=== PATIENT | male | born 1970 | race Caucasian/White ===

== ENCOUNTER 2019-08-18 19:23 | Emergency (ER) | payer OTHER ==
[~2019-08-18] VITALS: Ht 177.8 cm; Wt 97.5 kg
--- OUTSIDE RECORDS SUMMARY | ~2019-08-18 | XMS | Encounter Summary ---
Demographics + + + | Address | [address] | | | [place] [address] | + + + | Home Phone | | + + + | Preferred Language | Unknown | + + + | Marital Status | | + + + | Muslim Affiliation | NON | + + + | Race | White | + + + | Ethnic Group | Not or | + + + Author + + + | Author | [facility] | + + + | Organization | [facility] | + + + | Address | Unknown | + + + | Phone | Unavailable | + + + Support + + + + + | Name | Relationship | Address | Phone | + + + + + | Mohit Jackson | ECON | [address] | | | | | [place] | | | | | [address] | | + + + + + Care Team Providers + +------+ + | Care Label Paster Name | Role | Phone | + +------+ + PCP | Unavailable | + +------+ + Encounter Details +--------+ + + + + | Date | Type | Department | Care Team | Description | +--------+ + + + + | 11/03/ | Office | [facility] | Note, Outpatient | Progress Note | | 1999 | Visit-Trans | MEDICINE | Clinic | | | | cribed | | | | +--------+ + + + + Social History + +-------+ +--------+------+ | Tobacco Use | Types | Packs/Day | Years | Date | | | | | Used | | + +-------+ +--------+------+ | Never Assessed | | | | | + +-------+ +--------+------+ + + + | Sex Assigned at | Date Recorded | | | | + + + | Not on file | | + + + + + + + | Job Start Date | Occupation | Industry | + + + + | Not on file | Not on file | Not on file | + + + + + + + + | Travel History | Travel Start | Travel End | + + + + + + | No recent travel history available. | + + documented as of this encounter Progress Notes Interface, Web Analytics Developer In - 07/23/2006 2:26 AM PSTNON-VISIT NOTE: 11/04/1999 ORTHOPEDIC CLINIC SUBJECTIVE: The patient's studies were reevaluated again. He clearly has developed osteoarthritis on the medial side of his knee and his MR demonstrates that he has lost his cartilage in this area, and undoubtedly has a lot of symptoms from medial joint arthritis. PLAN: I think he should be given a trial in an unloading brace and I will convey that to him, and make arrangements to get a proper brace. In addition, I plan to review his studies with Dr. Yunior Wooten to see if there is any radiological procedure such as sclerosing agents that would be of benefit to this patient. Spencer Cornell M.D. HEVER / JUAN FRANCISCO [id number] / [id number] / [id number] / [id number] C: 11/10/1999 georgina cc: Zack Jackson [address] [place] [address] Ye Wooten M.D. [facility] L[address] [facility] [place] [email or web address] signed by Interface, Web Analytics Developer In at 07/23/2006 2:26 AM PSTdocumented in this encounter Plan of Treatment Not on filedocumented as of this encounter Visit Diagnoses Not on filedocumented in this encounter"
--- OUTSIDE RECORDS SUMMARY | ~2019-08-18 | XMS | Encounter Summary ---
Demographics + + + | Address | [address] | | | [place] [address] | + + + | Home Phone | | + + + | Preferred Language | Unknown | + + + | Marital Status | | + + + | Bahai Affiliation | NON | + + + | Race | White | + + + | Ethnic Group | Not or | + + + Author + + + | Author | [facility] | + + + | Organization | [facility] | + + + | Address | Unknown | + + + | Phone | Unavailable | + + + Support + + + + + | Name | Relationship | Address | Phone | + + + + + | Mohit Jackson | ECON | [address] | | | | | [place] | | | | | [address] | | + + + + + Care Team Providers + +------+ + | Care Duplicator Punch Operator Name | Role | Phone | + +------+ + PCP | Unavailable | + +------+ + Encounter Details +--------+ + + + + | Date | Type | Department | Care Team | Description | +--------+ + + + + | 10/31/ | Office | [facility] | Note, [...] as of this encounter Progress Notes Interface, Csw In - 07/23/2006 2:26 AM PSTCLINIC DATE: 11/01/1999 ORTHOPEDIC CLINIC SUBJECTIVE: This is a 29-year-old man seen for evaluation of residual hemangioma involving his left knee. He was found to have a vascular malformation around his knee in the past and has had a surgical resection, a good deal of it, by Dr. Lagos. He obtained some improvement in his discomfort and his pain was significantly diminished for a while after surgery, but about eight months later he began to notice discomfort again and this is the source of ongoing concern and disability for him. PAST MEDICAL HISTORY: Two arthroscopies prior to resection of the hemangioma. 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 ALLERGIES: HE IS ALLERGIC TO DOGS AND CATS. MEDICATIONS: He takes Tylenol and ibuprofen. He thinks that his limb lengths are equal and there is negative family history of any similar problems. 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 He has very few complaints in regard to the remainder of his health, but his left knee is obviously causing him significant and increasing problems. He has recently had an MRI which demonstrates the hemangiomatous material has increased in size since it was originally resected. I arranged for standard x-rays of his knee today which demonstrates that he has degenerative arthritis within the knee with particular involvement on the medial side of the knee. DIAGNOSES 1. Recurrent and persistent hemangiomata about the knee. 2. Osteoarthritis of the knee. RECOMMENDATIONS: I am uncertain as to the best course to follow. I plan to review the MRI with Radiology and discuss with them what the possibilities are for sclerosing agents in this area. I think consideration might be given toward an unloading brace for his knee, but I would like to decide first on how to manage the hemangiomata. Spencer Cornell M.D. HEVER / [id number] / [id number] / [id number] / [id number] C: 11/03/1999 georgina cc: Jian Franklin M.D. [address] [place] [address], [address] [place], [place] [email or web address] signed by Interface, Csw In at 07/23/2006 2:26 AM PSTdocumented in this encounter Plan of Treatment Not on filedocumented as of this encounter Visit Diagnoses Not on filedocumented in this encounter"
--- OUTSIDE RECORDS SUMMARY | ~2019-08-18 | XMS | Encounter Summary ---
Demographics + + + | Address | [address] | | | [place] [address] | + + + | Home Phone | | + + + | Preferred Language | Unknown | + + + | Marital Status | | + + + | Episcopalian Affiliation | NON | + + + | Race | White | + + + | Ethnic Group | Not or | + + + Author + + + | Author | [facility] | + + + | Organization | [facility] | + + + | Address | Unknown | + + + | Phone | Unavailable | + + + Support + + + + + | Name | Relationship | Address | Phone | + + + + + | Mohit Jackson | ECON | [address] | | | | | [place] | | | | | [address] | | + + + + + Care Team Providers + +------+ + | Care Cable Television Installer Name | Role | Phone | + +------+ + PCP | Unavailable | + +------+ + Encounter Details +--------+ + + + + | Date | Type | Department | Care Team | Description | +--------+ + + + + | 01/12/ | Document-Sc | UNKNOWN DEPARTMENT | Unknown . | | | 2016 | anned | [address] | | | | | | [address] | | | | | | [place], [place] | | | | | | [address] | | | +--------+ + + + [...] + + documented as of this encounter Plan of Treatment Not on filedocumented as of this encounter Visit Diagnoses Not on filedocumented in this encounter"
--- OUTSIDE RECORDS SUMMARY | ~2019-08-18 | XMS | Encounter Summary ---
Demographics + + + | Address | [address] | | | [place] [address] | + + + | Home Phone | | + + + | Preferred Language | Unknown | + + + | Marital Status | | + + + | Latter Day Affiliation | NON | + + + | Race | White | + + + | Ethnic Group | Not or | + + + Author + + + | Author | [facility] | + + + | Organization | [facility] | + + + | Address | Unknown | + + + | Phone | Unavailable | + + + Support + + + + + | Name | Relationship | Address | Phone | + + + + + | Mohit Jackson | ECON | [address] | | | | | [place] | | | | | [address] | | + + + + + Care Team Providers + +------+ + | Care Dispensing Audiologist Name | Role | Phone | + +------+ + PCP | Unavailable | + +------+ + Encounter Details +--------+ + + + + | Date | Type | Department | Care Team | Description | +--------+ + + + + | 08/11/ | Discharge | Allergy Clinic at | Summary, Discharge | D/C Summary ODDS | | 1996 | Summary-Tra | [address] | | | | | nscribed | [address] | | | | | | Mailcode: [id number] | | | | | | [address] | | | | | | [facility] | | | | | | [place] [address] | | | | | | [phone] | | | +--------+ + + + [...] + + documented as of this encounter Discharge Summaries Interface, Cloth Doubling Machine Operator In - 10/05/2006 3:01 AM PST [address] [address] [facility] MEDICAL SUMMARY OF HOSPITALIZATION Med Rec No.: [id number] Admission Date: 08/08/97 Name: Zack Jackson Discharge Date: 08/11/97 STAFF PHYSICIAN: Myla Lagos M.D. Adjunct Finished Cigar Maker, Department of Orthopaedics and Rehabilitation PRINCIPAL FINAL DIAGNOSIS: Left knee hemangioma. ADDITIONAL DIAGNOSIS(ES): 1. Idiopathic thrombocytopenic purpura (ITP). 2. Status post splenectomy. 3. Status post prior knee arthroscopy times two. PRINCIPAL PROCEDURE: Excision of left knee hemangioma. ADDITIONAL PROCEDURE(S): Physical therapy. REASON FOR ADMISSION: The patient is a pleasant 27-year-old gentleman who was seen in the Orthopedics Clinic by Dr. Lagos regarding left knee pain. The patient has a long history of knee pain that began when he was a teenager. He had an arthroscopy which showed osteoarthritis dissecans. He had follow-up arthroscopic surgery in suggesting some pigmented villonodular synovitis. He was offered surgery to resect it at the time, however, he declined. Since that time, he has had increasing knee pain and swelling and this has limited his ability to ambulate and be involved in the activities of daily living at his home. He wears a knee brace to support his knee. HOSPITAL COURSE: The patient was taken to the Operating Room on 08/08/97 for an excision of a large intra and extra-articular hemangioma of the left knee. The patient tolerated the procedure well and was taken to the Post Anesthesia Care Unit in stable condition. The patient's postoperative course was remarkable for some numbness and tingling of the left lower extremity. It was felt that this was associated with the use of the tourniquet intraoperatively. It was anticipated that full sensation should resume. The patient had sensation to light touch and pain intact to his foot and first dorsal web space. EHL was intact. The patient continued to do well. He was evaluated by Physical Therapy who worked with him to help rehabilitate his lower extremity. He was ok'd by Physical Therapy to return home on his third postoperative day. On the day of discharge the patient was achieving good pain control on oral medications, tolerating a regular diet and successfully evaluated by Physical Therapy. CONDITION ON DISCHARGE: Stable. DISCHARGE MEDICATION(S): Vicodin 1-2 tabs p.o. q. 4-6 p.r.n. pain. DISCHARGE INSTRUCTION(S): DIET: Regular as tolerated. ACTIVITY: The patient may bear weight as tolerated on the left lower extremity and may mobilize as tolerated. However, it is recommended that the patient should elevate his left lower extremity when he is not actively using it. FOLLOW UP: The patient is to follow-up in Orthopedics Clinic with Dr. Lagos on 08/14/97. Raulito Beard M.D. Resident, Surgery Myla Lagos M.D. Adjunct Finished Cigar Maker, Department of Orthopaedics and Rehabilitation [place]/todd A cc: Carltno Ospina M.D. Adjunct Director Home, Department of Orthopaedics and Rehabilitation documented in this encounter Plan of Treatment Not on filedocumented as of this encounter Visit Diagnoses Not on filedocumented in this encounter"
--- OUTSIDE RECORDS SUMMARY | ~2019-08-18 | XMS | Encounter Summary ---
Demographics + + + | Address | [address] | | | [place] [address] | + + + | Home Phone | | + + + | Preferred Language | Unknown | + + + | Marital Status | | + + + | Hinduism Affiliation | NON | + + + | Race | White | + + + | Ethnic Group | Not or | + + + Author + + + | Author | [facility] | + + + | Organization | [facility] | + + + | Address | Unknown | + + + | Phone | Unavailable | + + + Support + + + + + | Name | Relationship | Address | Phone | + + + + + | Mohit Jackson | ECON | [address] | | | | | [place] | | | | | [address] | | + + + + + Care Team Providers + +------+ + | Care Home Builder Name | Role | Phone | + +------+ + PCP | Unavailable | + +------+ + Encounter Details +--------+ + + + + | Date | Type | Department | Care Team | Description | +--------+ + + + + | 06/12/ | Office | General Internal | Note, Outpatient | Progress Note | | 1996 | Visit-Trans | Medicine [address] | Clinic | | | | cribed | [address] | | | | | | Mailcode: [id number] | | | | | | Outpatient Clinic | | | | | | [facility], [address] | | | | | | [place], [place] | | | | | | [address] | | | | | | [phone] | | | +--------+ + + + [...] as of this encounter Progress Notes Interface, Central Supply Assistant In - 10/11/2006 3:10 AM [facility] CLINIC DATE: 06/12/97 HISTORY OF PRESENT ILLNESS: I had a chance to Zack Jackson in the clinic today. He is a 27-year-old man who has a long history of pain and swelling of the left knee. Apparently he has had trouble with his left knee as long as he can remember. Apparently at age 10 he had arthroscopic surgery on his knee, was told that he had osteochondritis dissecans. Apparently his knee continued to bother him and in July of 1984 he had another surgery with arthroscopic examination and removal of some tissue from his knee which was said to be a pigmented villonodular synovitis. He had a partial removal of this. Open surgery was suggested to get rid of the rest of the lesion, but he has declined the surgery. He has had no surgery since then; however, has had more trouble with hit knee. He has had increasing pain in his pain with increasing swelling of the area as well. The knee feels also stiffer. He has been a lot of problem with the knee pain requiring Tylenol for pain. The pain is aggravated by walking or any physical activity, but it is presently pretty much all the time. He gets some relief with a warm bath. He wears a little brace to support his knee, but apparently this is only partially effective. He has no problems with his other knee. PAST MEDICAL HISTORY: He has a history of ITP. He has had a splenectomy in the past for the thrombocytopenia, and was initially followed here by Dr. Henri Santana. He has had apparently no other medical problems other than minor trauma and some fractures due to various falls and injuries. SOCIAL HISTORY: He is not particularly active in sports. He does not smoke. He apparently quite about 2-1/2 years ago. He does not drink. He does not take street drugs. He works as a restaurant crew. He is with one child. CURRENT MEDICATIONS: He takes no medications other than occasional Tylenol and has no known allergies. PHYSICAL EXAMINATION: He does have essentially a normal right lower extremity. On the left side he has obvious wastings in his quadriceps and his low leg. He has boggy swelling of his knee extending into the distal part of the quadriceps on the medial side. There is a palpable lump in this area and some lumpiness posteriorly as well. He does have a moderate effusion. Some of it is difficult to distinguish from just the generalized bogginess of his knee. He has full extension range of motion missing about 15 to 20 degrees of full flexion. Neurovascular status of the extremity is normal. He has normal ligamental stability. There is some tenderness in the area of the knee as well and along the medial joint line as well. X-RAYS/MRI: I then reviewed his MRI and this does show a large lesion invading various areas including his knee where there is a significant effusion, but also into his muscles, particularly the medial part of the quadriceps, but posteriorly as well. IMPRESSION AND PLAN: I believe the most likely diagnosis at this point is still a villonodular synovitis, but other lesions, of course, have to be ruled out. Particularly the invasion into the musculature is possible, that something like a hemangioma may be the culprit. The plan at this point will be to be to get him organized for a biopsy and resection of this lesion and perhaps make sure that we get blood work as well to make sure that his platelet count is appropriate. Perhaps have him seen as a pre-operative consultation by Dr. Santana to make sure no other precautions are necessary. We will try to get this organized in the future and hopefully be able to rehabilitate him fully. Myla Lagos M.D. Adjunct Coiled Tubing Supervisor, Department of Orthopaedics and Rehabilitation Franky A cc: Jian Garcia M.D. documented in this encounter Plan of Treatment Not on filedocumented as of this encounter Visit Diagnoses Not on filedocumented in this encounter"
--- OUTSIDE RECORDS SUMMARY | ~2019-08-18 | XMS | Encounter Summary ---
Demographics + + + | Address | [address] | | | [place] [address] | + + + | Home Phone | | + + + | Preferred Language | Unknown | + + + | Marital Status | | + + + | Presybeterian Affiliation | NON | + + + | Race | White | + + + | Ethnic Group | Not or | + + + Author + + + | Author | [facility] | + + + | Organization | [facility] | + + + | Address | Unknown | + + + | Phone | Unavailable | + + + Support + + + + + | Name | Relationship | Address | Phone | + + + + + | Mohit Jackson | ECON | [address] | | | | | [place] | | | | | [address] | | + + + + + Care Team Providers + +------+ + | Care Tripe Washer Name | Role | Phone | + +------+ + PCP | Unavailable | + +------+ + Encounter Details +--------+ + + + + | Date | Type | Department | Care Team | Description | +--------+ + + + + | 09/25/ | Office | General Internal | Note, Outpatient | Progress Note | | 1997 | Visit-Trans | Medicine [address] | Clinic | | | | cribed | [address] | | | | | | Mailcode: [id number] | | | | | | Outpatient Clinic | | | | | | [facility], [address] | | | | | | [place], [place] | | | | | | [address] | | | | | | [phone] | | | +--------+ + + + [...] as of this encounter Progress Notes Interface, Outside Sales Professional In - 09/29/2006 3:06 AM PST CLINIC DATE: 09/25/97 This man is recovering from a resection of inter-axillary hemiangioma from his left knee. He is doing reasonably well. His range of motion and strength is improving. He still is moderately swollen, which is not terribly surprising, considering the extent of his surgery. He is going to continue with physical therapy, and see me again in three or four months. Myla Lagos M.D. Adjunct Plasma Cutting Machine Operator, Department of Orthopaedics and Rehabilitation Makenzie P documented in this encounter Plan of Treatment Not on filedocumented as of this encounter Visit Diagnoses Not on filedocumented in this encounter"
--- OUTSIDE RECORDS SUMMARY | ~2019-08-18 | XMS | Encounter Summary ---
Demographics + + + | Address | [address] | | | [place] [address] | + + + | Home Phone | | + + + | Preferred Language | Unknown | + + + | Marital Status | | + + + | Pentecostalism Affiliation | NON | + + + | Race | White | + + + | Ethnic Group | Not or | + + + Author + + + | Author | [facility] | + + + | Organization | [facility] | + + + | Address | Unknown | + + + | Phone | Unavailable | + + + Support + + + + + | Name | Relationship | Address | Phone | + + + + + | Mohit Jackson | ECON | [address] | | | | | [place] | | | | | [address] | | + + + + + Care Team Providers + +------+ + | Care Levee Superintendent Name | Role | Phone | + +------+ + PCP | Unavailable | + +------+ + Encounter Details +--------+ + + + + | Date | Type | Department | Care Team | Description | +--------+ + + + + | 08/08/ | Results | LAB CORE [address] | [facility] | | | 1996 | Only | [address] | [phone] | | | | | [place] | | | | | | [address] | | | | | | [phone] | | | +--------+ + + + [...] Not on filedocumented as of this encounter Procedures + +--------+ + + + | Procedure Name | Priori | Date/Time | Associated Diagnosis | Comments | | | ty | | | | + +--------+ + + + | SURGICAL PATHOLOGY | Routin | 08/08/1997 | | Results for this | | | e | | | procedure are in the | | | | | | results section. | + +--------+ + + + documented in this encounter Results SURGICAL PATHOLOGY (08/08/1997) + + + + + + | Component | Value | Ref Range | Performed | Pathologist | | | | | At | Signature | + + + + + + | SURGICAL | SOURCE OF SPECIMEN: SEE | | [facility] | | | PATHOLOGY | RESULTS | | DEPARTMENT | | | | Preliminary | | OF | | | | History:FROZEN SECTION | | PATHOLOGY | | | | DIAGNOSISLEFT KNEE MASS | | | | | | (SPECIMEN #1) - | | | | | | INTRAMUSCULAR HEMANGIOMA | | | | | | Confirmed by: | | | | | | Johnathan Wagner M.D. | | | | | | CLINICAL HISTORY | | | | | | Patient Age: 27 year | | | | | | old male. Patient | | | | | | History: soft tissue | | | | | | tumor of the left knee; | | | | | | likelyhemangioma, extra | | | | | | and intra-articular. | | | | | | GROSS DESCRIPTION | | | | | | Specimens received: | | | | | | One fresh, two in | | | | | | formalin #1 LEFT | | | | | | KNEE MASS-FS: The | | | | | | specimen is received | | | | | | fresh and consists of | | | | | | asingle fragment of gomes, | | | | | | soft tissue measuring | | | | | | 1.3 x 1 x 0.6 cm. | | | | | | Thespecimen is inked | | | | | | black during frozen | | | | | | section diagnosis. The | | | | | | remainingtissue is | | | | | | serially sectioned to | | | | | | reveal a gomes, granular | | | | | | surface. #2 | | | | | | HEMANGIOMA LEFT KNEE: | | | | | | The specimen is received | | | | | | in formalin andconsists | | | | | | of eight fragments of | | | | | | gomes to maroon, soft, | | | | | | fibroadipose tissue.The | | | | | | largest fragment | | | | | | measures 9 x 5.5 x 1.6 | | | | | | cm. The additional | | | | | | fragmentsof soft tissue | | | | | | measure 6 x 5.5 x 1.5 | | | | | | cm. in aggregate | | | | | | dimension. Thefragments | | | | | | are unoriented and are | | | | | | serially sectioned to | | | | | | reveal a gomes tored, soft | | | | | | and glistening surface. | | | | | | #3 INTERARTICULAR | | | | | | COMPONENT: The specimen | | | | | | is received in formalin | | | | | | andconsists of four | | | | | | unoriented, gomes to | | | | | | maroon, soft | | | | | | fibroadipose tissue.The | | | | | | largest fragment | | | | | | measures 4.1 x 1.8 x 1 | | | | | | cm. and the three | | | | | | additionalfragments | | | | | | measure 1.5 x 1.5 x 0.7 | | | | | | cm. in aggregate | | | | | | dimension. | | | | | | Slide Index:LEFT KNEE | | | | | | MASS:Cassette 1A, | | | | | | specimen used for frozen | | | | | | section diagnosis, now | | | | | | resubmittedCassette 1B, | | | | | | additional fragments in | | | | | | totoHEMANGIOMA LEFT | | | | | | KNEE:Cassettes 2A-C, | | | | | | sections of | | | | | | fragmentsINTERARTICULAR | | | | | | COMPONENT:Cassette 3, | | | | | | sections of fragments | | | | | | All tissue sections | | | | | | taken are submitted for | | | | | | microscopic | | | | | | evaluation.SP/dj | | | | | | FINAL DIAGNOSIS#1 LEFT | | | | | | KNEE MASS: | | | | | | HEMANGIOMA#2 | | | | | | HEMANGIOMA LEFT KNEE: | | | | | | HEMANGIOMA#3 | | | | | | INTERARTICULAR | | | | | | COMPONENT: HEMANGIOMA | | | | | | Case reviewed by: | | | | | | Shaan Abdi M.D.Case | | | | | | staffed by: Celestina | | | | | | Sandy | | | | | | Jiant:[birth year]:cc | | | | | | My electronic signature | | | | | | indicates that I have | | | | | | personally reviewed | | | | | | alldiagnostic slides, | | | | | | the gross and/or | | | | | | microscopic portion of | | | | | | thisreport and | | | | | | formulated the final | | | | | | diagnosis. | | | | + + + + + + + + | Specimen | + + | Other | + + + + + + + | Performing | Address | City/State/Zipcode | Phone Number | | Organization | | | | + + + + + | [facility] | [address] | [place] [address] | | | PATHOLOGY | [address] | | | + + + + + documented in this encounter Visit Diagnoses Not on filedocumented in this encounter"
--- OUTSIDE RECORDS SUMMARY | ~2019-08-18 | XMS | Encounter Summary ---
Demographics + + + | Address | [address] | | | [place] [address] | + + + | Home Phone | | + + + | Preferred Language | Unknown | + + + | Marital Status | | + + + | Church Affiliation | 1013 | + + + | Race | Unknown | + + + | Ethnic Group | Unknown | + + + Author + + + | Author | [facility] | | | and [place] | + + + | Organization | [facility] | | | and [place] | + + + | Address | Unknown | + + + | Phone | Unavailable | + + + Support + + +---------+ + | Name | Relationship | Address | Phone | + + +---------+ + | Lori Jackson | ECON | Unknown | | + + +---------+ + Care Team Providers + +------+ + | Care Boat Buffer Plastic Name | Role | Phone | + +------+ + PCP | Unavailable | + +------+ + Encounter Details +--------+ + + + + | Date | Type | Department | Care Team | Description | +--------+ + + + + | 08/23/ | [facility] | [facility] | Unknown, | | | 2000 | Encounter | MED CTR XRAY [address] | MD Mike | | | | | [address] | | | | | | [place] [address] | (Fax) | | | | | [phone] | | | +--------+ + + + [...]
--- OUTSIDE RECORDS SUMMARY | ~2019-08-18 | XMS | Encounter Summary ---
Demographics + + + | Address | [address] | | | [place] [address] | + + + | Home Phone | | + + + | Preferred Language | Unknown | + + + | Marital Status | | + + + | Zoroastrian Affiliation | NON | + + + | Race | White | + + + | Ethnic Group | Not or | + + + Author + + + | Author | [facility] | + + + | Organization | [facility] | + + + | Address | Unknown | + + + | Phone | Unavailable | + + + Support + + + + + | Name | Relationship | Address | Phone | + + + + + | Mohit Jackson | ECON | [address] | | | | | [place] | | | | | [address] | | + + + + + Care Team Providers + +------+ + | Care Trimming Cutter Machine Name | Role | Phone | + +------+ + PCP | Unavailable | + +------+ + Encounter Details +--------+ + + + + | Date | Type | Department | Care Team | Description | +--------+ + + + + | 08/08/ | Results | LAB CORE [address] | [facility] | | | 1996 | Only | [address] | [phone] | | | | | [place] | | | | | | [address] | | | | | | [phone] | | | +--------+ + + + [...] | + + + + + | [facility] | [address] | [place] [address] | | | PATHOLOGY | [address] | | | + + + + + documented in this encounter Visit Diagnoses Not on filedocumented in this encounter"
--- OUTSIDE RECORDS SUMMARY | ~2019-08-18 | XMS | Encounter Summary ---
Demographics + + + | Address | [address] | | | [place] [address] | + + + | Home Phone | | + + + | Preferred Language | Unknown | + + + | Marital Status | | + + + | Mosque Affiliation | NON | + + + | Race | White | + + + | Ethnic Group | Not or | + + + Author + + + | Author | [facility] | + + + | Organization | [facility] | + + + | Address | Unknown | + + + | Phone | Unavailable | + + + Support + + + + + | Name | Relationship | Address | Phone | + + + + + | Mohit Jackson | ECON | [address] | | | | | [place] | | | | | [address] | | + + + + + Care Team Providers + +------+ + | Care Hvac Maintenance Technician Name | Role | Phone | + +------+ + PCP | Unavailable | + +------+ + Encounter Details +--------+ + + + + | Date | Type | Department | Care Team | Description | +--------+ + + + + | 10/14/ | Office | [facility] | Note, [...] as of this encounter Progress Notes Interface, Configuration Management Manager In - 07/25/2006 5:03 AM PSTCLINIC DATE: 10/14/1999 ORTHOPEDIC CLINIC SUBJECTIVE: Mr. Jackson was seen in the clinic on October 14, 1999. He has been having increasing problem with his knee. He now has fairly significant pain in his knee apparently enough that it interferes with his activities of daily living and it certainly bothers him at night as well. He also noticed some swelling in his knee. PHYSICAL EXAMINATION: Examining him, he indeed does have some bogginess in around patellofemoral joint and tenderness in the area and tenderness and discomfort posteriorly as well. He does have a knee effusion. I reviewed his MRI, and his MRI does show local recurrence of his disease together with degenerative changes in his knee with the previous erosions by the hemangioma. I then had a long discussion with him regarding the treatment possibilities. I discussed the possibility of trying to embolize his lesions or have them again surgically resected. He is not very keen on having a repeat excision surgery. He expressed interest in a total joint replacement. I discouraged him from this particular idea as he is quite a young man and having a total joint at this age is certainly not an answer to his problem. I felt that perhaps he should have a second opinion regarding what would be the best treatment for him, and I suggested my colleague Dr. Cornell, who is a very experienced and knowledgeable orthopedic surgeon, see Rik for his problem. I will then, of course, see him after the consultation and see if we can reach some consensus on what should be done next. Myla Lagos M.D. VAISHALI / JUAN FRANCISCO [id number] / [id number] / [id number] / [id number] Tdocumented in this encounter Plan of Treatment Not on filedocumented as of this encounter Visit Diagnoses Not on filedocumented in this encounter"
--- OUTSIDE RECORDS SUMMARY | ~2019-08-18 | XMS | Encounter Summary ---
Demographics + + + | Address | [address] | | | [place] [address] | + + + | Home Phone | | + + + | Preferred Language | Unknown | + + + | Marital Status | | + + + | Gnosticism Affiliation | NON | + + + [...] [place] | | | | | [address] | | + + + + + Care Team Providers + +------+ + | Care Assurance Officer Name | Role | Phone | + +------+ + PCP | Unavailable | + +------+ + Encounter Details +--------+ + + + + | Date | Type | Department | Care Team | Description | +--------+ + + + + | 08/14/ | Office | General Internal | Note, Outpatient | Progress Note | | 1996 | Visit-Trans | Medicine [address] | Clinic | | | | cribed | [address] | | | | | | Mailcode: [id number] | | | | | | Outpatient Clinic | | | | | | [facility], [address] | | | | | | [place], [place] | | | | | | [address] | | | | | | [phone] | | | +--------+ + + + [...] as of this encounter Progress Notes Interface, Movie Extra In - 10/05/2006 3:01 AM PST CLINIC DATE: 08/14/97 Mr. 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 It was a rather extensive operation, removing large portion of the hemangioma from the area of the vastus medialis and from the popliteal fossa. He has done well. The wound is healing nicely. He still has a persistent effusion. The plan at this point is to continue to watch his knee for any evidence of wound problem, and get him started on physical therapy, particularly isometric strengthening of his quadriceps and the range of motion exercises. I will review him again in three weeks. His final pathology is extra and intra-articular hemangioma. Myla Lagos M.D. Adjunct [employer] Miller, Department of Orthopaedics and Rehabilitation Makenzie A documented in this encounter Plan of Treatment Not on filedocumented as of this encounter Visit Diagnoses Not on filedocumented in this encounter"
--- OUTSIDE RECORDS SUMMARY | ~2019-08-18 | XMS | Encounter Summary ---
Demographics + + + | Address | [address] | | | [place] [address] | + + + | Home Phone | | + + + | Preferred Language | Unknown | + + + | Marital Status | | + + + | Mormon Affiliation | NON | + + + | Race | White | + + + | Ethnic Group | Not or | + + + Author + + + | Author | [facility] | + + + | Organization | [facility] | + + + | Address | Unknown | + + + | Phone | Unavailable | + + + Support + + + + + | Name | Relationship | Address | Phone | + + + + + | Mohit Jackson | ECON | [address] | | | | | [place] | | | | | [address] | | + + + + + Care Team Providers + +------+ + | Care Set Illustrator Name | Role | Phone | + [...] Clinic | | | | | | [facility], [address] | | | | | | [place], [place] | | | | | | [address] | | | | | | [phone] | | | +--------+ + + + [...] as of this encounter Progress Notes Interface, Utility Specialist In - 09/29/2006 3:06 AM PST CLINIC [...] or four months. Myla Lagos M.D. Adjunct Oncology Technician, Department of Orthopaedics and Rehabilitation Makenzie P documented in this encounter Plan of Treatment Not on filedocumented as of this encounter Visit Diagnoses Not on filedocumented in this encounter"
--- OUTSIDE RECORDS SUMMARY | ~2019-08-18 | XMS | Encounter Summary ---
Demographics + + + | Address | [address] | | | [place] [address] | + + + | Home Phone | | + + + | Preferred Language | Unknown | + + + | Marital Status | | + + + | Bahai Affiliation | NON | + + + | Race | White | + + + | Ethnic Group | Not or | + + + Author + + + | Author | [facility] | + + + | Organization | [facility] | + + + | Address | Unknown | + + + | Phone | Unavailable | + + + Support + + + + + | Name | Relationship | Address | Phone | + + + + + | Mohit Jackson | ECON | [address] | | | | | [place] | | | | | [address] | | + + + + + Care Team Providers + +------+ + | Care Consulting Manager Name | Role | Phone | + +------+ + PCP | Unavailable | + +------+ + Encounter Details +--------+ + + + + | Date | Type | Department | Care Team | Description | +--------+ + + + + | 05/24/ | Results | Orthopaedics at | Spencer Cornell MD | | | 2000 | Only | [facility] [address] | [address] | | | | | [address] | [place], | | | | | Mailcode: [id number] | [place] [address] | | | | | [facility] | | | | | | [place] | | | | | | [address] | | | | | | [phone] | | | +--------+ + + + [...] | + +--------+ + + + | MRI KNEE LT WO CONT | Routin | 05/24/2001 | | Results for this | | | e | 2:30 PM | | procedure are in the | | | | PDT | | results section. | + +--------+ + + + documented in this encounter Results MRI KNEE LT WO CONT (05/24/2001 2:30 PM PDT) + + + + + + | Component | Value | Ref Range | Performed | Pathologist | | | | | At | Signature | + + + + + + | MR KNEE LT | Radiologist 1: TANISHA, | | | | | WO CONT | Myla ANGULO M.D.LEFT | | | | | | KNEE MRI: 05/24/2001 | | | | | | Dictated 06/12/01 | | | | | | COMPARISON: Outside knee | | | | | | MRI from 08/06/1999 at | | | | | | [facility]. | | | | | | PROCEDURE: Knee coil | | | | | | was used for the | | | | | | following sequences:1. | | | | | | Coronal proton density | | | | | | and T2 spin echo.2. | | | | | | Sagittal proton | | | | | | density and T2 spin echo | | | | | | with fat suppression.3. | | | | | | Axial T2* weighted | | | | | | gradient echo images and | | | | | | oblique sagittal T1 | | | | | | images. Field of | | | | | | view is 14 cm on all | | | | | | images. The comparison | | | | | | study has slightly | | | | | | more proximal coverage | | | | | | with 18 cm field ofview. | | | | | | FINDINGS: There is | | | | | | advanced degenerative | | | | | | joint disease of all | | | | | | threejoint compartments. | | | | | | It is most severe in | | | | | | the medial compartment | | | | | | withjoint narrowing, | | | | | | femoral condylar | | | | | | flattening and reactive | | | | | | edema of thefemoral and | | | | | | tibial condyles. There | | | | | | is almost complete loss | | | | | | ofarticular cartilage | | | | | | in the medial | | | | | | compartment. There are | | | | | | prominentmarginal | | | | | | osteophytes both medial | | | | | | and laterally as well as | | | | | | at theintracondylar | | | | | | notch. Patellofemoral | | | | | | spurring is also | | | | | | present. There is large | | | | | | complex tear of the | | | | | | medial meniscus with | | | | | | almostmaceration of the | | | | | | body. Tear extends | | | | | | into both the anterior | | | | | | andposterior horns. | | | | | | The lateral meniscus | | | | | | appears intact without | | | | | | discreettear. The | | | | | | anterior and posterior | | | | | | cruciate ligaments are | | | | | | intact.Medial collateral | | | | | | ligament and lateral | | | | | | collateral ligament | | | | | | complex areintact. Again | | | | | | noted, are multiple | | | | | | foci of lobular | | | | | | hyperintense soft | | | | | | tissuemasses consistent | | | | | | with hemangioma. Some | | | | | | collections are rather | | | | | | wellmarginated while | | | | | | others are more | | | | | | infiltrative in nature | | | | | | making itdifficult to | | | | | | provide clear-cut | | | | | | measurements of the | | | | | | tumor margin.Largest | | | | | | areas of hemangioma are | | | | | | seen in the following | | | | | | locations: 1. There is | | | | | | a 2.7 x 1.5 cm | | | | | | hemangiomatous mass | | | | | | anteriorly within | | | | | | Hoffa's fat pad. 2. | | | | | | There is large lobular | | | | | | mass adjacent to the | | | | | | medial femoral | | | | | | metaphysis which | | | | | | measures approximately 5 | | | | | | x 4 x 2 cm craniocaudad | | | | | | and transverse | | | | | | dimensions. It appears | | | | | | more marginated | | | | | | anteriorly but | | | | | | posteriorly becomes much | | | | | | more infiltrated in | | | | | | nature involving | | | | | | the subcutaneous fat | | | | | | as well as the vastus | | | | | | medialis. On sagittal | | | | | | images this area can | | | | | | be seen to measure | | | | | | slightly greater than 5 | | | | | | cm in longitudinal | | | | | | dimension and 2 cm AP. | | | | | | 3. There is a focal | | | | | | lesion measuring almost | | | | | | 2 cm just posterior to | | | | | | the PCL. 4. There | | | | | | is multi-lobular | | | | | | hyperintense mass | | | | | | surrounding the | | | | | | popliteal vessels | | | | | | in the superior aspect | | | | | | of popliteus fossa. | | | | | | The cranial | | | | | | extent of this is not | | | | | | included. 5. There is | | | | | | joint effusion | | | | | | collecting predominately | | | | | | in the lateral | | | | | | recess of the | | | | | | suprapatellar pouch. | | | | | | Because of this bright | | | | | | signal it is | | | | | | somewhat difficult to | | | | | | visualize some poorly | | | | | | marginated adjacent | | | | | | portions of soft tissue | | | | | | hemangioma. 6. No | | | | | | intraosseous hemangioma | | | | | | or intra-articular | | | | | | extent is | | | | | | identified. | | | | | | IMPRESSION: 1. Multi | | | | | | focal hyperintense | | | | | | multi-lobular soft | | | | | | tissue massesconsistent | | | | | | with history of | | | | | | hemangioma. Size and | | | | | | distribution of | | | | | | thelesions does not | | | | | | appear appreciately | | | | | | changed since 07/1999. | | | | | | AlthoughI do not | | | | | | currently image the most | | | | | | cranial extent of the | | | | | | region arounda popliteal | | | | | | vessels, that area | | | | | | which is included in our | | | | | | field of viewappears | | | | | | unchanged. I see no | | | | | | vascular occlusion of | | | | | | the poplitealartery or | | | | | | vein. 2. Advanced | | | | | | degenerative joint | | | | | | disease with almost | | | | | | complete cartilageloss | | | | | | and some flattening at | | | | | | the medial condyle with | | | | | | reactive edema ofboth | | | | | | the femoral and tibial | | | | | | condyles. 3. Extensive | | | | | | complex tear involving | | | | | | much of the medial | | | | | | meniscus. 4. Joint | | | | | | effusion. 5. | | | | | | Patellofemoral | | | | | | degenerative joint | | | | | | disease with cartilage | | | | | | thinningand marginal | | | | | | osteophytes. There is | | | | | | slight lateral | | | | | | subluxation of | | | | | | thepatella on axial | | | | | | images. END OF | | | | | | IMPRESSION: | | | | + + + + + + + + | Specimen | + + | | + + + +---------+ + + | Performing | Address | City/State/Zipcode | Phone Number | | Organization | | | | + +---------+ + + | [facility] DEPARTMENT OF | | | | | RADIOLOGY | | | | + +---------+ + + documented in this encounter Visit Diagnoses Not on filedocumented in this encounter"
--- OUTSIDE RECORDS SUMMARY | ~2019-08-18 | XMS | Encounter Summary ---
Demographics + + + | Address | [address] | | | [place] [address] | + + + | Home Phone | | + + + | Preferred Language | Unknown | + + + | Marital Status | | + + + | Muslim Affiliation | NON | + + + | Race | White | + + + | Ethnic Group | Not or | + + + Author + + + | Author | [facility] | + + + | Organization | [facility] | + + + | Address | Unknown | + + + | Phone | Unavailable | + + + Support + + + + + | Name | Relationship | Address | Phone | + + + + + | Mohit Jackson | ECON | [address] | | | | | [place] | | | | | [address] | | + + + + + Care Team Providers + +------+ + | Care Lawnmower Mechanic Name | Role | Phone | + +------+ + PCP | Unavailable | + +------+ + Encounter Details +--------+ + + + + | Date | Type | Department | Care Team | Description | +--------+ + + + + | 06/15/ | Office | [facility] | Note, Outpatient | Progress Note | | 2000 | Visit-Trans | MEDICINE | Clinic | [...] as of this encounter Progress Notes Interface, Pie Chef In - 06/01/2006 3:12 AM PDTNON-VISIT NOTE: 06/15/2001 ORTHOPEDIC CLINIC I reviewed the new MRI on Mr. Jackson along with Dr. Mc. There is a fairly sizeable area of hemangioma in the area of the infrapatellar fat pad. There is another area on the medial side at the upper end of the condyle, and then there is a fairly large area posteriorly. I think from a technical standpoint, it should be possible to put a total knee in here without getting into too much of his hemangioma. It is a little worsened, but I think it is probably appropriate to proceed. He has previously been reviewed with Dr. Wooten, and he and the patient did not arrive at a plan to deal with any of the hemangioma. There is no question that he has severe osteoarthritis. I plan to be in touch with him and determine a final plan. Spencer Cornell M.D. HEVER / JUAN FRANCISCO [id number] / [id number] / [id number] / C: 06/18/2001 hkh A M PDTdocumented in this encounter Plan of Treatment Not on filedocumented as of this encounter Visit Diagnoses Not on filedocumented in this encounter"
--- OUTSIDE RECORDS SUMMARY | ~2019-08-18 | XMS | Clinical Summary ---
Demographics + + + | Address | [address] | | | [place] [address] | + + + | Home Phone | | + + + | Preferred Language | Unknown | + + + | Marital Status | | + + + | Shinto Affiliation | NON | + + + | Race | White | + + + | Ethnic Group | Not or | + + + Author + + + | Organization | Unknown | + + + | Address | Unknown | + + + | Phone | Unavailable | + + + Support + + + + + | Name | Relationship | Address | Phone | + + + + + | Mohit Jackson | ECON | [address] | | | | | [place] | | | | | [address] | | + + + + + Care Team Providers + +------+ + | Care Branch Associate Teller Name | Role | Phone | + +------+ + PCP | Unavailable | + +------+ + Source Comments STEFFEN is fully live on both [facility] Ambulatory and [facility] InPatient.[facility] Allergies + + + + + + | Active Allergy | Reactions | Severity | Noted | Comments | | | | | Date | | + + + + + + | Clarification Needed | | | 08/08/19 | ANTICOAGULANTS | | | | | 97 | | + + + + + + Medications Not on file Active Problems Not on file Social History + +-------+ +--------+------+ | Tobacco [...] recent travel history available. | + + Last Filed Vital Signs Not on file Plan of Treatment + + + + + | Health Maintenance | Due Date | Last Done | Comments | + + + + + | Influenza (Flu) | | | | | vaccination (#1) | 9 | | | + + + + + | Pneumococcal | Aged Out | | No longer eligible | | vaccination | | | based on patient's | | | | | age to complete this | | | | | topic | + + + + + Results Not on filefrom Last 3 Months"
--- OUTSIDE RECORDS SUMMARY | ~2019-08-18 | XMS | Clinical Summary ---
Demographics + + + | Address | [address] | | | [place] [address] | + + + | Home Phone | | + + + | Preferred Language | Unknown | + + + | Marital Status | | + + + | Denominational Affiliation | 1013 | + + + | Race | Unknown | + + + | Ethnic Group | Unknown | + + + Author + + + | Author | [facility] | | | and [place] | + + + | Organization | [facility] | | | and [place] | [...] Team Providers + +------+ + | Care Smoking Pipe Maker Name | Role | Phone | + +------+ + PCP | Unavailable | + +------+ + Allergies Not on File Medications Not on file Active Problems Not [...] | + + + + + | Vaccine: | | | | | Dtap/Tdap/Td (1 - | 0 | | | | Tdap) | | | | + + + + + | Vaccine: Influenza | | | | | (#1) | 9 | | | + + + + + | Vaccine: Zoster (1 | | | | | of 2) | 9 | | | + + + + + Results Not on filefrom Last 3 Months"
--- OUTSIDE RECORDS SUMMARY | ~2019-08-18 | XMS | Encounter Summary ---
Demographics + + + | Address | [address] | | | [place] [address] | + + + | Home Phone | | + + + | Preferred Language | Unknown | + + + | Marital Status | | + + + | Sabianist Affiliation | NON | + + + | Race | White | + + + | Ethnic Group | Not or | + + + Author + + + | Author | [facility] | + + + | Organization | [facility] | + + + | Address | Unknown | + + + | Phone | Unavailable | + + + Support + + + + + | Name | Relationship | Address | Phone | + + + + + | Mohit Jackson | ECON | [address] | | | | | [place] | | | | | [address] | | + + + + + Care Team Providers + +------+ + | Care Lap Machine Operator Name | Role | Phone | [...] as of this encounter Progress Notes Interface, Car Ferry Captain In - 07/23/2006 2:26 AM PSTNON-VISIT NOTE: [...] Spencer Cornell M.D. HEVER / JUAN FRANCISCO [id number] / [id number] / [id number] / [id number] C: 11/10/1999 georgina cc: Zack Jackson [address] [place] [address] Ye Wooten M.D. [facility] [id number] [facility] [place] [address]Advhoawmkddazw signed by Interface, Car Ferry Captain In at 07/23/2006 2:26 AM PSTdocumented in this encounter Plan of Treatment Not on filedocumented as of this encounter Visit Diagnoses Not on filedocumented in this encounter"
--- OUTSIDE RECORDS SUMMARY | ~2019-08-18 | XMS | Encounter Summary ---
Demographics + + + | Address | [address] | | | [place] [address] | + + + | Home Phone | | + + + | Preferred Language | Unknown | + + + | Marital Status | | + + + | Scientologist Affiliation | NON | + + + [...] [place] | | | | | [address] | | + + + + + Care Team Providers + +------+ + | Care Process Designer Name | Role | Phone | + +------+ + PCP | Unavailable | + +------+ + Encounter Details +--------+ + + + + | Date | Type | Department | Care Team | Description | +--------+ + + + + | 11/17/ | Office | [facility] | Note, [...] as of this encounter Progress Notes Interface, Tongue Stitcher In - 07/23/2006 2:26 AM PSTNON-VISIT NOTE: 11/18/[facility] I called Zack at work [phone] and made arrangements with [employer] to call him to arrange for an unloading brace. I verified that Dr. Ye Wooten is out of town for about a week, but I have sent his MRI over to Dr. Wooten who will review it and see if there is anything further we can do. I plan to get back in touch with the patient after Dr. Wooten contacts me. MD DANELLE HernandezB / HS [id number] / [id number] / [id number] / [id number] C: 11/20/[address] [facility] cc: Ye Wooten MD [id number] docume nted in this encounter Plan of Treatment Not on filedocumented as of this encounter Visit Diagnoses Not on filedocumented in this encounter"
--- OUTSIDE RECORDS SUMMARY | ~2019-08-18 | XMS | Encounter Summary ---
Demographics + + + | Address | [address] | | | [place] [address] | + + + | Home Phone | | + + + | Preferred Language | Unknown | + + + | Marital Status | | + + + | Quaker Affiliation | NON | + + + | Race | White | + + + | Ethnic Group | Not or | + + + Author + + + | Author | [facility] | + + + | Organization | [facility] | + + + | Address | Unknown | + + + | Phone | Unavailable | + + + Support + + + + + | Name | Relationship | Address | Phone | + + + + + | Mohit Jackson | ECON | [address] | | | | | [place] | | | | | [address] | | + + + + + Care Team Providers + +------+ + | Care Retail Warehouse Associate Name | Role | Phone | + [...] as of this encounter Progress Notes Interface, Cyber Systems Engineer In - 07/23/2006 2:26 AM PSTCLINIC DATE: [...] problems. 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 He has very few complaints in regard [...] the hemangiomata. Spencer Cornell M.D. HEVER / [id number] / [id number] / [id number] / [id number] C: 11/03/1999 georgina cc: Jian Franklin M.D. [address] [place] [address], [address] [place], [place] [id number] signed by Interface, Cyber Systems Engineer In at 07/23/2006 2:26 AM PSTdocumented in this encounter Plan of Treatment Not on filedocumented as of this encounter Visit Diagnoses Not on filedocumented in this encounter"
--- OUTSIDE RECORDS SUMMARY | ~2019-08-18 | XMS | Encounter Summary ---
Demographics + + + | Address | [address] | | | [place] [address] | + + + | Home Phone | | + + + | Preferred Language | Unknown | + + + | Marital Status | | + + + | Anabaptism Affiliation | NON | + + + [...] [place] | | | | | [address] | | + + + + + Care Team Providers + +------+ + | Care Security Guard Name | Role | Phone | + +------+ + PCP | Unavailable | + +------+ + Encounter Details +--------+ + + + + | Date | Type | Department | Care Team | Description | +--------+ + + + + | 04/22/ | Results | | Other, Faculty | | | 1996 | Only | | [phone] | | +--------+ + + + + [...] | + +--------+ + + + | KNEE, 4 VIEWS | Routin | 04/22/1997 | | Results for this | | | e | 2:43 PM | | procedure are in the | | | | PDT | | results section. | + +--------+ + + + documented in this encounter Results KNEE, 4 VIEWS (04/22/1997 2:43 PM PDT) + + + + + + | Component | Value | Ref Range | Performed | Pathologist | | | | | At | Signature | + + + + + + | KNEE, 4 | Radiologist 1: TANISHA, | | | | | VIEWS | Myla ANGULO, | | | | | | Jian-Radiologist 2: | | | | | | EDD NELSON, | | | | | | ZACK ESPINO | | | | | | | | | | | | | | | | | | 22 LEFT | | | | | | KNEE, AP, LATERAL, NOTCH | | | | | | AND MERCHANTS VIEWS: | | | | | | 04-22-97 AT 1443HOURS | | | | | | DICTATED: 04-23-97 | | | | | | FINDINGS: The bones | | | | | | are intact with no | | | | | | fracture or | | | | | | focaldestruction. The | | | | | | medial, lateral and | | | | | | patellofemoral joint | | | | | | spaces aremaintained. | | | | | | There is a moderately | | | | | | sized joint effusion, | | | | | | merchantviews | | | | | | demonstrate normal | | | | | | patellar alignment. | | | | | | IMPRESSION: Joint | | | | | | effusion, otherwise | | | | | | unremarkable left knee. | | | | | | END OF IMPRESSION: | | | | + + + + + + + + | Specimen | + + | | + + + + + | Narrative | Performed At | + + + | Ordered by BALBINA ALVARADO | | + + + + +---------+ + + | Performing | Address | City/State/Zipcode | Phone Number | | Organization | | | | + +---------+ + + | [facility] DEPARTMENT OF | | | | | RADIOLOGY | | | | + +---------+ + + documented in this encounter Visit Diagnoses Not on filedocumented in this encounter"
--- OUTSIDE RECORDS SUMMARY | ~2019-08-18 | XMS | Encounter Summary ---
Demographics + + + | Address | [address] | | | [place] [address] | + + + | Home Phone | | + + + | Preferred Language | Unknown | + + + | Marital Status | | + + + | Sikhism Affiliation | NON | + + + | Race | White | + + + | Ethnic Group | Not or | + + + Author + + + | Author | [facility] | + + + | Organization | [facility] | + + + | Address | Unknown | + + + | Phone | Unavailable | + + + Support + + + + + | Name | Relationship | Address | Phone | + + + + + | Mohit Jackson | ECON | [address] | | | | | [place] | | | | | [address] | | + + + + + Care Team Providers + +------+ + | Care Wood Model Maker Name | Role | Phone | + +------+ + PCP | Unavailable | + +------+ + Encounter Details +--------+ + + + + | Date | Type | Department | Care Team | Description | +--------+ + + + + | 07/29/ | Office | General Internal | Note, Outpatient | Progress Note | | 1996 | Visit-Trans | Medicine [address] | Clinic | | | | cribed | [address] | | | | | | Mailcode: [id number] | | | | | | Outpatient Clinic | | | | | | [facility], [address] | | | | | | [place], [place] | | | | | | [address] | | | | | | [phone] | | | +--------+ + + + [...] as of this encounter Progress Notes Interface, Motorcycle Assembler In - 10/05/2006 3:01 AM [facility] CLINIC DATE: 07/29/97 PRE-ADMISSION HISTORY AND PHYSICAL EXAMINATION CHIEF COMPLAINT: Left knee pain. HISTORY OF PRESENT ILLNESS: This patient has a long history of knee pain that began when he was a teenager. 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 He was offered surgery for resection at that time; however, he declined. Since that time he has had increasing pain in his knee with swelling. The pain has become a limitation in his ability to ambulate and be involved in activities of daily living at this time. He wears a knee brace to support the knee. 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 PAST MEDICAL HISTORY: Significant for ITP. Status post splenectomy. Two arthroscopic surgeries on the left knee. A few minor traumas involved clavicle fracture. MEDICATIONS: None. ALLERGIES: No known drug allergies. SOCIAL HISTORY: He is with one child, works as a restaurant lead. Habits - he was a previous smoker times eight years, quit approximately 2 years ago. PHYSICAL EXAMINATION: This is a healthy-appearing young man in no apparent distress. Pupils are equal and round, extra-ocular muscles are intact. Neck is supple. Chest is clear to auscultation bilaterally. Heart has regular rate and rhythm. Abdomen is soft, nondistended, with positive bowel sounds. Left upper quadrant shows surgical scar. Right knee exam shows 0 to greater than 120 degrees of flexion, stable to medial and lateral stress, anterior and posterior drawer, with no effusion present, no patellofemoral pain noted. Left knee demonstrates a very mild effusion, no erythema, no warmth, stable to medial and lateral stress, and anterior and posterior drawer. There is 0 to greater than 120 degrees of flexion, with pain throughout the full range; however, this does not limit the range of motion. There is no indication of specific patellofemoral pain. IMPRESSION: This is a young man with a previous arthroscopic biopsy indicating pigmented villonodular synovitis, and a greater than two-year history of swelling and pain in the left knee. He has had an MRI which is reported as demonstrating a lesion invading various areas in the knee, with a significant effusion. PLAN: He is to be admitted, undergo an open biopsy with possible resection of swelling and mass in left knee. He is to be evaluated by the Hematology clinic prior to surgery. Owen Jalloh M.D. Resident, Orthopaedics and Rehabilitation for Myla Lagos M.D. Adjunct Special Services Agent, Department of Orthopaedics and Rehabilitation AXEL/elizabeth P documented in this encounter Plan of Treatment Not on filedocumented as of this encounter Visit Diagnoses Not on filedocumented in this encounter"
--- OUTSIDE RECORDS SUMMARY | ~2019-08-18 | XMS | Encounter Summary ---
Demographics + + + | Address | [address] | | | [place] [address] | + + + | Home Phone | | + + + | Preferred Language | Unknown | + + + | Marital Status | | + + + | Uatsdin Affiliation | NON | + + + | Race | White | + + + | Ethnic Group | Not or | + + + Author + + + | Author | [facility] | + + + | Organization | [facility] | + + + | Address | Unknown | + + + | Phone | Unavailable | + + + Support + + + + + | Name | Relationship | Address | Phone | + + + + + | Mohit Jackson | ECON | [address] | | | | | [place] | | | | | [address] | | + + + + + Care Team Providers + +------+ + | Care Printing Film Stripper Name | Role | Phone | + [...] Clinic | | | | | | [facility], [address] | | | | | | [place], [place] | | | | | | [address] | | | | | | [phone] | | | +--------+ + + + [...] as of this encounter Progress Notes Interface, Steel Pan Form Placing Supervisor In - 10/05/2006 3:01 AM PST CLINIC [...] and intra-articular hemangioma. Myla Lagos M.D. Adjunct Outbound Sales Consultant, Department of Orthopaedics and Rehabilitation Makenzie A documented in this encounter Plan of Treatment Not on filedocumented as of this encounter Visit Diagnoses Not on filedocumented in this encounter"
--- OUTSIDE RECORDS SUMMARY | ~2019-08-18 | XMS | Encounter Summary ---
Demographics + + + | Address | [address] | | | [place] [address] | + + + | Home Phone | | + + + | Preferred Language | Unknown | + + + | Marital Status | | + + + | Pentecostal Affiliation | NON | + + + | Race | White | + + + | Ethnic Group | Not or | + + + Author + + + | Author | [facility] | + + + | Organization | [facility] | + + + | Address | Unknown | + + + | Phone | Unavailable | + + + Support + + + + + | Name | Relationship | Address | Phone | + + + + + | Mohit Jackson | ECON | [address] | | | | | [place] | | | | | [address] | | + + + + + Care Team Providers + +------+ + | Care Manager Library Name | Role | Phone | + [...] | | | | | | [facility] | | | | | | [place] [address] | | | | | | [phone] | | | +--------+ + + + [...] as of this encounter Discharge Summaries Interface, Ash Handler In - 10/05/2006 3:01 AM PST [address] [address] [facility] MEDICAL SUMMARY OF HOSPITALIZATION Med Rec No.: [id number] Admission Date: 08/08/97 Name: Zack Jackson Discharge Date: 08/11/97 STAFF PHYSICIAN: Myla Lagos M.D. Adjunct Stripping Cutter And Winder, Department of Orthopaedics and Rehabilitation PRINCIPAL FINAL [...] M.D. Resident, Surgery Myla Lagos M.D. Adjunct Stripping Cutter And Winder, Department of Orthopaedics and Rehabilitation [place]/todd A cc: Carlton Ospina M.D. Adjunct Animal Services Officer, Department of Orthopaedics and Rehabilitation documented in this encounter Plan of Treatment Not on filedocumented as of this encounter Visit Diagnoses Not on filedocumented in this encounter"
--- OUTSIDE RECORDS SUMMARY | ~2019-08-18 | XMS | Encounter Summary ---
Demographics + + + | Address | [address] | | | [place] [address] | + + + | Home Phone | | + + + | Preferred Language | Unknown | + + + | Marital Status | | + + + | Anabaptism Affiliation | NON | + + + | Race | White | + + + | Ethnic Group | Not or | + + + Author + + + | Author | [facility] | + + + | Organization | [facility] | + + + | Address | Unknown | + + + | Phone | Unavailable | + + + Support + + + + + | Name | Relationship | Address | Phone | + + + + + | Mohit Jackson | ECON | [address] | | | | | [place] | | | | | [address] | | + + + + + Care Team Providers + +------+ + | Care Traveling Engineer Name | Role | Phone | + [...] Clinic | | | | | | [facility], [address] | | | | | | [place], [place] | | | | | | [address] | | | | | | [phone] | | | +--------+ + + + [...] as of this encounter Progress Notes Interface, Waste And Batting Waste Chopper In - 10/05/2006 3:01 AM [facility] CLINIC DATE: 07/29/97 PRE-ADMISSION HISTORY AND PHYSICAL [...] is with 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 Habits - he was a previous smoker [...] and Rehabilitation for Myla Lagos M.D. Adjunct Keyboard Action Assembler, Department of Orthopaedics and Rehabilitation AXEL/elizabeth P documented in this encounter Plan of Treatment Not on filedocumented as of this encounter Visit Diagnoses Not on filedocumented in this encounter"
--- OUTSIDE RECORDS SUMMARY | ~2019-08-18 | XMS | Encounter Summary ---
Demographics + + + | Address | [address] | | | [place] [address] | + + + | Home Phone | | + + + | Preferred Language | Unknown | + + + | Marital Status | | + + + | Hoahaoism Affiliation | NON | + + + [...] [place] | | | | | [address] | | + + + + + Care Team Providers + +------+ + | Care Criminalist Technician Name | Role | Phone | + +------+ + PCP | Unavailable | + +------+ + Encounter Details +--------+ + + + + | Date | Type | Department | Care Team | Description | +--------+ + + + + | 04/22/ | Results | | Other, Faculty | | | 1996 | Only | | [phone] | | +--------+ + + + + [...] | + +---------+ + + | [facility] DEPARTMENT OF | | | | | RADIOLOGY | | | | + +---------+ + + documented in this encounter Visit Diagnoses Not on filedocumented in this encounter"
--- OUTSIDE RECORDS SUMMARY | ~2019-08-18 | XMS | Clinical Summary ---
Demographics + + + | Address | [address] | | | [place] [address] | + + + | Home Phone | | + + + | Preferred Language | Unknown | + + + | Marital Status | | + + + | Tenriism Affiliation | 1013 | + + + | Race | Unknown | + + + | Ethnic Group | Unknown | + + + Author + + + | Author | [facility] | | | and [place] | + + + | Organization | [facility] | | | and [place] | [...] Team Providers + +------+ + | Care Toy Parts Former Supervisor Name | Role | Phone | + [...]
--- OUTSIDE RECORDS SUMMARY | ~2019-08-18 | XMS | Encounter Summary ---
Demographics + + + | Address | [address] | | | [place] [address] | + + + | Home Phone | | + + + | Preferred Language | Unknown | + + + | Marital Status | | + + + | Christianity Affiliation | NON | + + + | Race | White | + + + | Ethnic Group | Not or | + + + Author + + + | Author | [facility] | + + + | Organization | [facility] | + + + | Address | Unknown | + + + | Phone | Unavailable | + + + Support + + + + + | Name | Relationship | Address | Phone | + + + + + | Mohit Jackson | ECON | [address] | | | | | [place] | | | | | [address] | | + + + + + Care Team Providers + +------+ + | Care Cook Ice Cream Name | Role | Phone | + +------+ + PCP | Unavailable | + +------+ + Encounter Details +--------+ + + + + | Date | Type | Department | Care Team | Description | +--------+ + + + + | 11/13/ | Office | General Internal | Note, Outpatient | Progress Note | | 1997 | Visit-Trans | Medicine [address] | Clinic | | | | cribed | [address] | | | | | | Mailcode: L475 | | | | | | Outpatient Clinic | | | | | | [facility], [address] | | | | | | [place], [place] | | | | | | [address] | | | | | | [phone] | | | +--------+ + + + [...] as of this encounter Progress Notes Interface, Pharmaceutical Assistant In - 09/26/2006 3:05 AM PST CLINIC DATE: 11/13/97 This lad had a resection of 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 He is doing really very well. PHYSICAL EXAMINATION: He is fully healed, has a good range of motion, lacking only about 15 degrees of full flexion, which is back to where he was pre-operatively. There is no significant effusion, no pain and no tenderness. PLAN: I encouraged him to continue with his quad strengthening exercises. He still has some quadriceps wasting. I will review him again in a few months. Myla Lagos M.D. Adjunct Car Servicer, Department of Orthopaedics and Rehabilitation MICHAEL/elizabeth A cc: Bassam Lozada MD [address] [place] [phone] documented in this encounter Plan of Treatment Not on filedocumented as of this encounter Visit Diagnoses Not on filedocumented in this encounter"
--- OUTSIDE RECORDS SUMMARY | ~2019-08-18 | XMS | Encounter Summary ---
Demographics + + + | Address | [address] | | | [place] [address] | + + + | Home Phone [...] [place] | | | | | [address] | | + + + + + Care Team Providers + +------+ + | Care Oracle Ebs Consultant Name | Role | Phone | + +------+ + PCP | Unavailable | + +------+ + Encounter Details +--------+ + + + + | Date | Type | Department | Care Team | Description | +--------+ + + + + | 10/31/ | Results | Orthopaedics at | Spencer Cornell MD | | | 1999 | Only | [facility] [address] | [address] | | | | | [address] | [place], | | | | | Mailcode: [id number] | [place] [address] | | | | | [facility] | | | | | | [place] | | | | | | [address] | | | | | | [phone] | | | +--------+ + + + [...] | KNEE, 4 VIEWS | Routin | 11/01/1999 | | Results for this | | | e | 10:50 AM | | procedure are in the | | | | PST | | results section. | + +--------+ + + + documented in this encounter Results KNEE, 4 VIEWS (11/01/1999 10:50 AM PST) + + + + + + | Component | Value | Ref Range | Performed | Pathologist | | | | | At | Signature | + + + + + + | KNEE, 4 | Radiologist 1: TANISHA, | | | | | VIEWS | Myla ANGULO M.D.LEFT | | | | | | KNEE -- FOUR VIEWS: | | | | | | 11/01/99. Dictated | | | | | | 11/06/99 COMPARISON: | | | | | | Comparison is made | | | | | | with prior study of | | | | | | March,. FINDINGS: | | | | | | AP, lateral, | | | | | | intercondylar notch, and | | | | | | Merchant views | | | | | | wereperformed. There has | | | | | | been significant | | | | | | progression in | | | | | | degenerative arthrosis | | | | | | withworsening medial | | | | | | joint narrowing, | | | | | | sclerosis, and | | | | | | osteophyte. There | | | | | | isalso worsening | | | | | | osteophytic change of | | | | | | the lateral compartment. | | | | | | Thereis mild genu | | | | | | varum. The | | | | | | intercondylar notch view | | | | | | shows no | | | | | | significantnotch | | | | | | narrowing or loose | | | | | | bodies. There are new | | | | | | surgical | | | | | | changesposterior to the | | | | | | knee, which appear to | | | | | | represent vascular | | | | | | clips. I donot seen | | | | | | underlying bony | | | | | | abnormality. There is | | | | | | joint effusion | | | | | | withpatellofemoral | | | | | | degenerative arthrosis. | | | | | | The Merchant view | | | | | | shows somelateral joint | | | | | | narrowing and tilt. | | | | | | IMPRESSION: Significant | | | | | | progression of | | | | | | tricompartment | | | | | | degenerative arthrosis | | | | | | ofthe left knee since | | | | | | March,. There is | | | | | | now associated genu | | | | | | varum. END OF | | | | | | IMPRESSION: | | | | + + + + + + + + | Specimen | + + | | + + + +---------+ + + | Performing | Address | City/State/Zipcode | Phone Number | | Organization | | | | + +---------+ + + | [facility] DEPARTMENT OF | | | | | RADIOLOGY | | | | + +---------+ + + documented in this encounter Visit Diagnoses Not on filedocumented in this encounter"
--- OUTSIDE RECORDS SUMMARY | ~2019-08-18 | XMS | Encounter Summary ---
Demographics + + + | Address | [address] | | | [place] [address] | + + + | Home Phone | | + + + | Preferred Language | Unknown | + + + | Marital Status | | + + + | Religion Affiliation | NON | + + + | Race | White | + + + | Ethnic Group | Not or | + + + Author + + + | Author | [facility] | + + + | Organization | [facility] | + + + | Address | Unknown | + + + | Phone | Unavailable | + + + Support + + + + + | Name | Relationship | Address | Phone | + + + + + | Mohit Jackson | ECON | [address] | | | | | [place] | | | | | [address] | | + + + + + Care Team Providers + +------+ + | Care Refrigerator Tester Name | Role | Phone | + [...] [address] | | | | | | [place], [place] | | | | | | [address] | | | +--------+ + + + [...]
--- OUTSIDE RECORDS SUMMARY | ~2019-08-18 | XMS | Encounter Summary ---
Demographics + + + | Address | [address] | | | [place] [address] | + + + | Home Phone | | + + + | Preferred Language | Unknown | + + + | Marital Status | | + + + | Anglican Affiliation | NON | + + + [...] [place] | | | | | [address] | | + + + + + Care Team Providers + +------+ + | Care Sawsmith Name | Role | Phone | + [...] | | [address] | [place], | | | | | Mailcode: [id number] | [place] [address] | | | | | [facility] | | | | | | [place] | | | | | | [address] | | | | | | [phone] | | | +--------+ + + + [...] | | + +---------+ + + | [facility] DEPARTMENT OF | | | | | RADIOLOGY | | | | + +---------+ + + documented in this encounter Visit Diagnoses Not on filedocumented in this encounter"
--- OUTSIDE RECORDS SUMMARY | ~2019-08-18 | XMS | Encounter Summary ---
Demographics + + + | Address | [address] | | | [place] [address] | + + + | Home Phone | | + + + | Preferred Language | Unknown | + + + | Marital Status | | + + + | Judaism Affiliation | NON | + + + | Race | White | + + + | Ethnic Group | Not or | + + + Author + + + | Author | [facility] | + + + | Organization | [facility] | + + + | Address | Unknown | + + + | Phone | Unavailable | + + + Support + + + + + | Name | Relationship | Address | Phone | + + + + + | Mohit Jackson | ECON | [address] | | | | | [place] | | | | | [address] | | + + + + + Care Team Providers + +------+ + | Care Reprographics Technician Name | Role | Phone | + +------+ + PCP | Unavailable | + +------+ + Encounter Details +--------+ + + + + | Date | Type | Department | Care Team | Description | +--------+ + + + + | 05/24/ | Office | [facility] | Note, [...] as of this encounter Progress Notes Interface, Medicare Sales Representative In - 06/01/2006 3:12 AM PDTCLINIC DATE: 05/24/2001 [facility] Zack was seen in followup. I last saw him in about September 1999 or October 1999. I sent him to Dr. Wooten to see. Dr. Wooten thought that any treatment would be indicated for his hemangiomata-type lesion that has been partially removed. Apparently, Dr. Wooten and he did not arrive at any treatment program, and he accordingly has gone back to work. 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 He is on his feet for about 10 hours a day and is having increasing difficulty. The unloading brace that I prescribed is really not helping him. I think that consideration at this point should not be given towards doing a total knee replacement, because he has significant degenerative changes in the knee associated with his hemangiomata. I have suggested to him that we get a new MRI of his knee, review that, and then I will be in contact with him at [phone]. I am looking forward to receiving the MRI for evaluation. Spencer Cornell M.D. HEVER / [place]UAN [place]ANCISCO [id number] / [id number] / [id number] / [id number] C: 05/29/2001 [facility] cc: Bassam Lozada M.D. [address], [address] [place], [place] [id number] signed by Interface, Medicare Sales Representative In at 06/01/2006 3:12 AM PDTdocumented in this encounter Plan of Treatment Not on filedocumented as of this encounter Visit Diagnoses Not on filedocumented in this encounter"
--- OUTSIDE RECORDS SUMMARY | ~2019-08-18 | XMS | Encounter Summary ---
Demographics + + + | Address | [address] | | | [place] [address] | + + + | Home Phone | | + + + | Preferred Language | Unknown | + + + | Marital Status | | + + + | Taoist Affiliation | NON | + + + | Race | White | + + + | Ethnic Group | Not or | + + + Author + + + | Author | [facility] | + + + | Organization | [facility] | + + + | Address | Unknown | + + + | Phone | Unavailable | + + + Support + + + + + | Name | Relationship | Address | Phone | + + + + + | Mohit Jackson | ECON | [address] | | | | | [place] | | | | | [address] | | + + + + + Care Team Providers + +------+ + | Care Brain Wave Technician Name | Role | Phone | [...] | | [address] | [place], | | | | | Mailcode: [id number] | [place] [address] | | | | | [facility] | | | | | | [place] | | | | | | [address] | | | | | | [phone] | | | +--------+ + + + [...] at | | | | | | [facility]. | | | | | | PROCEDURE: [...] | | + +---------+ + + | [facility] DEPARTMENT OF | | | | | RADIOLOGY | | | | + +---------+ + + documented in this encounter Visit Diagnoses Not on filedocumented in this encounter"
--- OUTSIDE RECORDS SUMMARY | ~2019-08-18 | XMS | Encounter Summary ---
Demographics + + + | Address | [address] | | | [place] [address] | + + + | Home Phone | | + + + | Preferred Language | Unknown | + + + | Marital Status | | + + + | Tenriism Affiliation | NON | + + + [...] [place] | | | | | [address] | | + + + + + Care Team Providers + +------+ + | Care Frame Polisher Name | Role | Phone | + +------+ + PCP | Unavailable | + +------+ + Encounter Details +--------+ + + + + | Date | Type | Department | Care Team | Description | +--------+ + + + + | 05/27/ | Office | General Internal | Note, Outpatient | Progress Note | | 1996 | Visit-Trans | Medicine [address] | Clinic | | | | cribed | [address] | | | | | | Mailcode: [id number] | | | | | | Outpatient Clinic | | | | | | [facility], [address] | | | | | | [place], [place] | | | | | | [address] | | | | | | [phone] | | | +--------+ + + + [...] as of this encounter Progress Notes Interface, Channeling Machine Runner In - 10/11/2006 3:10 AM PST CLINIC DATE: 05/27/97 Rik returns today for follow-up of his left knee. He did not bring his MRI, but the report shows something that the radiologist there at least thinks is something other than PVNS. The description in the report is ominous enough that I would like him to see Dr. Lagos in two weeks while I am out of town. If the MRI does show PVNS, then I would take the case, but if this is something more infiltrative, I would appreciate it if Rasta would take this. Interestingly, Rik says that he actually feels a little bit better than he has over the last few weeks, as he has let up on some of his activities. He still has a very boggy knee that is warm to the touch, and he does have some fluid in there, but one gets the impression it is more of a boggy synovium than anything else. It limits his flexion somewhat. We will await Dr. Lagos's thoughts. Carlton Ospina M.D. Adjunct Fiscal Manager, Department of Orthopaedics and Rehabilitation ADITYA/elizabeth P cc: Bassam Cabrales MD documented in this encounter Plan of Treatment Not on filedocumented as of this encounter Visit Diagnoses Not on filedocumented in this encounter"
--- OUTSIDE RECORDS SUMMARY | ~2019-08-18 | XMS | Clinical Summary ---
Demographics + + + | Address | [address] | | | [place] [address] | + + + | Home Phone | | + + + | Preferred Language | Unknown | + + + | Marital Status | | + + + | Restorationist Affiliation | NON | + + + [...] [place] | | | | | [address] | | + + + + + Care Team Providers + +------+ + | Care Airplane Pilot Photogrammetry Name | Role | Phone | + +------+ + PCP | Unavailable | + +------+ + Source Comments STEFFEN is fully live on both [facility] Ambulatory and [facility] InPatient.[facility] Allergies + + + + + + [...]
--- OUTSIDE RECORDS SUMMARY | ~2019-08-18 | XMS | Encounter Summary ---
Demographics + + + | Address | [address] | | | [place] [address] | + + + | Home Phone | | + + + | Preferred Language | Unknown | + + + | Marital Status | | + + + | Church Affiliation | NON | + + + | Race | White | + + + | Ethnic Group | Not or | + + + Author + + + | Author | [facility] | + + + | Organization | [facility] | + + + | Address | Unknown | + + + | Phone | Unavailable | + + + Support + + + + + | Name | Relationship | Address | Phone | + + + + + | Mohit Jackson | ECON | [address] | | | | | [place] | | | | | [address] | | + + + + + Care Team Providers + +------+ + | Care Furniture Refinisher Name | Role | Phone | + +------+ + PCP | Unavailable | + +------+ + Encounter Details +--------+ + + + + | Date | Type | Department | Care Team | Description | +--------+ + + + + | 04/22/ | Office | General Internal | Note, Outpatient | Progress Note | | 1996 | Visit-Trans | Medicine [address] | Clinic | | | | cribed | [address] | | | | | | Mailcode: [address] | | | | | | Outpatient Clinic | | | | | | [facility], [address] | | | | | | [place], [place] | | | | | | [address] | | | | | | [phone] | | | +--------+ + + + [...] as of this encounter Progress Notes Interface, Senior Java Programmer Analyst In - 10/17/2006 5:07 AM PST CLINIC DATE: 04/22/97 Mr. Jackson is a 26-year-old who has had left knee pain and intermittent swelling for as long as he can remember. He has had a couple of arthroscopies, the last one in 1983. 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 He has waxing and waning swelling and pain, although he says his knee hurts a little bit all the time, but certainly has exacerbations. His pain has been worse over the last three weeks. The pain is worse with activity, although sitting for extended periods of time makes it sore too. He has quite a bit of swelling, and has noted that his quadriceps muscles are weak on the left side, because he doesn't use his leg much. 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 PHYSICAL EXAMINATION: He lacks about 5 degrees of full extension. He has a fairly large knee with an anteromedial protrusion at the insertion of the vastus medialis to the extensor mechanism. He has a moderate effusion with a positive fluid wave. His ligamentous exam is normal. He has no tenderness in his joint lines. X-RAYS: Plain films taken today show a relatively normal knee with some minimal squaring of the femoral condyles, indicative of very early arthritic changes. There are no loose bodies seen, contrary to some of the notes sent with him. ASSESSMENT AND PLAN: An attempt of tapping of the knee was performed through the area of his old anterolateral portal. No fluid was aspirated. This is a 26-year-old with chronic knee pain. 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 He also has an effusion that is apparently chronic. We think it would be reasonable ot obtain an MRI because it has a characteristic pattern for PVNS. In the meanwhile, we should look into whether arthroscopic treatment might be a viable option or whether he needs an open debridement. We also will look into whether adjunct chemotherapy would be useful. We will see him back after his MRI. Raulito Bowen M.D. Resident, Orthopedic Surgery for Carlton Ospina M.D. Adjunct Cryptologic Technician Technical, Orthopaedics and Rehabilitation RENETTA/elizabeth P cc: Bassam Cabrales MD documented in this encounter Plan of Treatment Not on filedocumented as of this encounter Visit Diagnoses Not on filedocumented in this encounter"
--- OUTSIDE RECORDS SUMMARY | ~2019-08-18 | XMS | Encounter Summary ---
Demographics + + + | Address | [address] | | | [place] [address] | + + + | Home Phone | | + + + | Preferred Language | Unknown | + + + | Marital Status | | + + + | Amish Affiliation | NON | + + + | Race | White | + + + | Ethnic Group | Not or | + + + Author + + + | Author | [facility] | + + + | Organization | [facility] | + + + | Address | Unknown | + + + | Phone | Unavailable | + + + Support + + + + + | Name | Relationship | Address | Phone | + + + + + | Mohit Jackson | ECON | [address] | | | | | [place] | | | | | [address] | | + + + + + Care Team Providers + +------+ + | Care Boom Boss Name | Role | Phone | + [...] as of this encounter Progress Notes Interface, Supervisor Inspection In - 06/01/2006 3:12 AM PDTNON-VISIT NOTE: [...] Spencer Cornell M.D. HEVER / JUAN [place]ANCISCO [id number] / [id number] / [id number] / C: 06/18/2001 hkh A M PDTdocumented in this encounter Plan of Treatment Not on filedocumented as of this encounter Visit Diagnoses Not on filedocumented in this encounter"
--- OUTSIDE RECORDS SUMMARY | ~2019-08-18 | XMS | Encounter Summary ---
Demographics + + + | Address | [address] | | | [place] [address] | + + + | Home Phone | | + + + | Preferred Language | Unknown | + + + | Marital Status | | + + + | Catholic Affiliation | NON | + + + | Race | White | + + + | Ethnic Group | Not or | + + + Author + + + | Author | [facility] | + + + | Organization | [facility] | + + + | Address | Unknown | + + + | Phone | Unavailable | + + + Support + + + + + | Name | Relationship | Address | Phone | + + + + + | Mohit Jackson | ECON | [address] | | | | | [place] | | | | | [address] | | + + + + + Care Team Providers + +------+ + | Care Gas Station Clerk Name | Role | Phone | + +------+ + PCP | Unavailable | + +------+ + Encounter Details +--------+ + + + + | Date | Type | Department | Care Team | Description | +--------+ + + + + | 07/29/ | Results | Registration [id number] | | | | 1996 | Only | [address] | | | | | | Louie Mailcode: [id number] | | | | | | [place], [place] | | | | | | [address] | | | | | | [phone] | | | +--------+ + + + [...] | + +--------+ + + + | CBC TESTS 2 | Routin | 08/09/1997 | | Results for this | | | e | 12:00 PM | | procedure are in the | | | | PST | | results section. | + +--------+ + + + | COAGULATION TESTS 2 | Routin | 07/29/1997 | | | | | e | 2:56 PM | | | | | | PST | | | + +--------+ + + + | COAGULATION TESTS 1 | Routin | 07/29/1997 | | Results for this | | | e | 2:56 PM | | procedure are in the | | | | PST | | results section. | + +--------+ + + + | COAGULATION TESTS 1 | Routin | 07/29/1997 | | Results for this | | | e | 2:56 PM | | procedure are in the | | | | PST | | results section. | + +--------+ + + + | CHEMISTRY TESTS 4 | Routin | 07/29/1997 | | Results for this | | | e | 12:45 PM | | procedure are in the | | | | PST | | results section. | + +--------+ + + + | CBC TESTS 2 | Routin | 07/29/1997 | | Results for this | | | e | 12:45 PM | | procedure are in the | | | | PST | | results section. | + +--------+ + + + | COAGULATION TESTS 2 | Routin | 07/29/1997 | | Results for this | | | e | 12:45 PM | | procedure are in the | | | | PST | | results section. | + +--------+ + + + | CHEMISTRY TESTS 2 | Routin | 07/29/1997 | | Results for this | | | e | 12:45 PM | | procedure are in the | | | | PST | | results section. | + +--------+ + + + | CBC TESTS 1 | Routin | 07/29/1997 | | Results for this | | | e | 12:45 PM | | procedure are in the | | | | PST | | results section. | + +--------+ + + + documented in this encounter Results CBC TESTS 2 (08/09/1997 12:00 PM PST) + + + + + + | Component | Value | Ref Range | Performed | Pathologist | | | | | At | Signature | + + + + + + | WHITE CELL | 15.8 (H) | K/CU MM | | | | COUNT | | | | | + + + + + + | WHITE CELL | CHECKED (H) | K/CU MM | | | | COUNT | | | | | + + + + + + | RED CELL | 3.92 (L) | M/CU MM | | | | COUNT | | | | | + + + + + + | HEMOGLOBIN | 12.2 (L) | GM/DL | | | + + + + + + | HEMATOCRIT | 35.9 (L) | % | | | + + + + + + | MCV | 91.7 | FL | | | + + + + + + | MCH | 31.2 | PG | | | + + + + + + | MCHC | 34. | GM/DL | | | + + + + + + | RDW | 13. | % | | | + + + + + + | PLATELET | 118. (L) | K/CU MM | | | | COUNT | | | | | + + + + + + | MPV | 11.6 (H) | FL | | | + + + + + + + + | Specimen | + + | | + + + + + + + | Performing | Address | City/State/Zipcode | Phone Number | | Organization | | | | + + + + + | [facility] | [address] | [place] [address] | | | PATHOLOGY | [address] | | | + + + + + COAGULATION TESTS 2 (07/29/1997 2:56 PM PST) + +-------+ + + + | Component | Value | Ref Range | Performed | Pathologist | | | | | At | Signature | + +-------+ + + + | EUGLOBULIN | | | | | | LYSIS | | | | | + +-------+ + + + + + | Specimen | + + | | + + + + + + + | Performing | Address | City/State/Zipcode | Phone Number | | Organization | | | | + + + + + | [facility] | [address] | [place] [address] | | | PATHOLOGY | [address] | | | + + + + + COAGULATION TESTS 1 (07/29/1997 2:56 PM PST) + + + + + + | Component | Value | Ref Range | Performed | Pathologist | | | | | At | Signature | + + + + + + | FACTOR VIII | 0.88 | U/mL | | | | COAGULAT, | | | | | | PLASMA | | | | | + + + + + + | FVIII VWF | 1.16 | U/mL | | | | ANTIGEN, | | | | | | PLASMA | | | | | + + + + + + | MIGDALIA | 1.04 | U/mL | | | | ND FACTOR | | | | | | ACTIVITY, | | | | | | PLASMA | | | | | + + + + + + + + | Specimen | + + | | + + + + + + + | Performing | Address | City/State/Zipcode | Phone Number | | Organization | | | | + + + + + | [facility] | [address] | [place] [address] | | | PATHOLOGY | [address] | | | + + + + + COAGULATION TESTS 1 (07/29/1997 2:56 PM PST) + + + + + + | Component | Value | Ref Range | Performed | Pathologist | | | | | At | Signature | + + + + + + | RESULT(SBT) | 4.5 | MINUTES | | | + + + + + + | CUT #1 | 4. | MINUTES | | | + + + + + + | CUT #2 | 5.5 | MINUTES | | | + + + + + + + + | Specimen | + + | | + + + + + + + | Performing | Address | City/State/Zipcode | Phone Number | | Organization | | | | + + + + + | [facility] | [address] | [place] [address] | | | PATHOLOGY | [address] | | | + + + + + CHEMISTRY TESTS 2 (07/29/1997 12:45 PM PST) + + + + + + | Component | Value | Ref Range | Performed | Pathologist | | | | | At | Signature | + + + + + + | TRIGLYCERID | 157. | mg/dL | | | | ES | | | | | + + + + + + + + | Specimen | + + | | + + + + + + + | Performing | Address | City/State/Zipcode | Phone Number | | Organization | | | | + + + + + | [facility] | [address] | [place] [address] | | | PATHOLOGY | [address] | | | + + + + + CHEMISTRY TESTS 4 (07/29/1997 12:45 PM PST) + + + + + + | Component | Value | Ref Range | Performed | Pathologist | | | | | At | Signature | + + + + + + | SODIUM, | 140. | mmol/l | | | | PLASMA | | | | | | (LAB) | | | | | + + + + + + | POTASSIUM, | 4.7 | mmol/l | | | | PLASMA | | | | | | (LAB) | | | | | + + + + + + | CHLORIDE, | 104. | mmol/l | | | | PLASMA | | | | | | (LAB) | | | | | + + + + + + | TOTAL CO2, | 33. (H) | mmol/l | | | | PLASMA | | | | | | (LAB) | | | | | + + + + + + | BUN, PLASMA | 14. | mg/dL | | | | (LAB) | | | | | + + + + + + | CREATININE | 1.1 | mg/dL | | | | PLASMA | | | | | | (LAB) | | | | | + + + + + + | GLUCOSE, | 123. (H) | mg/dL | | | | PLASMA | | | | | | (LAB) | | | | | + + + + + + | CALCIUM, | 9.6 | mg/dL | | | | PLASMA | | | | | | (LAB) | | | | | + + + + + + | MAGNESIUM,P | 2. | mg/dL | | | | LASMA | | | | | + + + + + + | PHOSPHORUS, | 3.8 | mg/dL | | | | PLASMA | | | | | | (LAB) | | | | | + + + + + + | AST(SGOT) | 24. | U/L | | | + + + + + + | ALK PHOS | 73. | U/L | | | + + + + + + | BILIRUBIN | 0.1 | mg/dL | | | | DIRECT | | | | | + + + + + + | BILIRUBIN | 0.7 | mg/dL | | | | TOTAL | | | | | + + + + + + | ALBUMIN, | 4.6 | GM/DL | | | | PLASMA | | | | | | (LAB) | | | | | + + + + + + + + | Specimen | + + | | + + + + + + + | Performing | Address | City/State/Zipcode | Phone Number | | Organization | | | | + + + + + | [facility] | [address] | [place] [address] | | | PATHOLOGY | [address] | | | + + + + + COAGULATION TESTS 2 (07/29/1997 12:45 PM PST) + + + + + + | Component | Value | Ref Range | Performed | Pathologist | | | | | At | Signature | + + + + + + | PROTHROMBIN | 12. | SECONDS | | | | TIME | | | | | + + + + + + | PROTIME | 1. | SECONDS | | | | RATIO | | | | | + + + + + + | PROTHROMBIN | 1.04 | INR | | | | INR | | | | | + + + + + + | APTT | 20.2 (L) | SECONDS | | | + + + + + + | FIBRINOGEN | 221. | mg/dL | | | | LEVEL | | | | | + + + + + + + + | Specimen | + + | | + + + + + + + | Performing | Address | City/State/Zipcode | Phone Number | | Organization | | | | + + + + + | [facility] | [address] | [place] [address] | | | PATHOLOGY | [address] | | | + + + + + CBC TESTS 2 (07/29/1997 12:45 PM PST) + + + + + + | Component | Value | Ref Range | Performed | Pathologist | | | | | At | Signature | + + + + + + | WHITE CELL | 11.1 (H) | K/CU MM | | | | COUNT | | | | | + + + + + + | RED CELL | 4.71 | M/CU MM | | | | COUNT | | | | | + + + + + + | HEMOGLOBIN | 14.5 | GM/DL | | | + + + + + + | HEMATOCRIT | 43.3 | % | | | + + + + + + | MCV | 91.9 | FL | | | + + + + + + | MCH | 30.8 | PG | | | + + + + + + | MCHC | 33.5 | GM/DL | | | + + + + + + | RDW | 12.8 | % | | | + + + + + + | PLATELET | 151. | K/CU MM | | | | COUNT | | | | | + + + + + + | PLATELET | PRELIMINARY RESULT | K/CU MM SEE | | | | COUNT | | FINAL REPORT | | | + + + + + + | MPV | 13. (H) | FL | | | + + + + + + + + | Specimen | + + | | + + + + + + + | Performing | Address | City/State/Zipcode | Phone Number | | Organization | | | | + + + + + | [facility] | [address] | [place] [address] | | | PATHOLOGY | [address] | | | + + + + + CBC TESTS 1 (07/29/1997 12:45 PM PST) + + + + + + | Component | Value | Ref Range | Performed | Pathologist | | | | | At | Signature | + + + + + + | PLATELET | FEW PLT CLUMPS ON | | | | | FINAL | SMEAR;EST. NORMAL | | | | | REPORT - | | | | | | HEADER | | | | | + + + + + + + + | Specimen | + + | | + + + + + + + | Performing | Address | City/State/Zipcode | Phone Number | | Organization | | | | + + + + + | [facility] | [address] | [place] [address] | | | PATHOLOGY | [address] | | | + + + + + documented in this encounter Visit Diagnoses Not on filedocumented in this encounter"
--- OUTSIDE RECORDS SUMMARY | ~2019-08-18 | XMS | Encounter Summary ---
Demographics + + + | Address | [address] | | | [place] [address] | + + + | Home Phone | | + + + | Preferred Language | Unknown | + + + | Marital Status | | + + + | Oriental Orthodox Affiliation | NON | + + + | Race | White | + + + | Ethnic Group | Not or | + + + Author + + + | Author | [facility] | + + + | Organization | [facility] | + + + | Address | Unknown | + + + | Phone | Unavailable | + + + Support + + + + + | Name | Relationship | Address | Phone | + + + + + | Mohit Jackson | ECON | [address] | | | | | [place] | | | | | [address] | | + + + + + Care Team Providers + +------+ + | Care Oil House Attendant Name | Role | Phone | + +------+ + PCP | Unavailable | + +------+ + Encounter Details +--------+ + + + + | Date | Type | Department | Care Team | Description | +--------+ + + + + | 02/26/ | Office | General Internal | Note, Outpatient | Progress Note | | 1997 | Visit-Trans | Medicine [address] | Clinic | | | | cribed | [address] | | | | | | Mailcode: L475 | | | | | | Outpatient Clinic | | | | | | [facility], [address] | | | | | | [place], [place] | | | | | | [address] | | | | | | [phone] | | | +--------+ + + + [...] as of this encounter Progress Notes Interface, Solar Energy Advisor In - 09/13/2006 1:08 AM PST CLINIC DATE: 02/26/98 Zack is doing reasonably well. He has had some recent discomfort anterolaterally just lateral to the patellar tendon insertion. 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 He is going to try some physical therapy to see if this will disappear, but if not, we will repeat his MRI to see if there is a significant recurrence in the area. I will review him again in three months. If he is not better, he will let me know, and we will get an MRI organized in the meanwhile. Myla Lagos M.D. Adjunct Oil Pump Station Operator Chief, Department of Orthopaedics and Rehabilitation Franky A cc: PCP documented in this encounter Plan of Treatment Not on filedocumented as of this encounter Visit Diagnoses Not on filedocumented in this encounter"
--- OUTSIDE RECORDS SUMMARY | ~2019-08-18 | XMS | Encounter Summary ---
Demographics + + + | Address | [address] | | | [place] [address] | + + + | Home Phone | | + + + | Preferred Language | Unknown | + + + | Marital Status | | + + + | Confucianism Affiliation | NON | + + + | Race | White | + + + | Ethnic Group | Not or | + + + Author + + + | Author | [facility] | + + + | Organization | [facility] | + + + | Address | Unknown | + + + | Phone | Unavailable | + + + Support + + + + + | Name | Relationship | Address | Phone | + + + + + | Mohit Jackson | ECON | [address] | | | | | [place] | | | | | [address] | | + + + + + Care Team Providers + +------+ + | Care Edge Cutting Machine Operator Name | Role | Phone | + +------+ + PCP | Unavailable | + +------+ + Encounter Details +--------+ + + + + | Date | Type | Department | Care Team | Description | +--------+ + + + + | 08/08/ | Procedure - | Digestive [facility] | Record, Operation | Operative Report | | 1996 | | [facility] | | | | | Transcribed | [address] | | | | | | Mailcode: Adrian | | | | | | [facility] | | | | | | Healing, [address] | | | | | | [facility] [place] | | | | | | [address] | | | | | | [phone] | | | +--------+ + + + [...] | + +--------+ + + + | OPERATION RECORD | | 08/08/1997 | | Results for this | | | | 12:00 AM | | procedure are in the | | | | PST | | results section. | + +--------+ + + + documented in this encounter Results OPERATION RECORD (08/08/1997 12:00 AM PST) + + | Procedure Note | + + | 08/08/1997 12:00 AM [facility] | | [facility] | | [address], [place] [address] | | [facility] | | | | OPERATION RECORD | | | | Med Rec No.: [id number] Date: 08/08/97 | | | | Name: Zack Jackson | | | | | | ATTENDING SURGEON: Myla Lagos M.D. | | Adjunct Latex Dipper, | | Department of Orthopaedics | | and Rehabilitation | | | | EQUIPMENT MAINT TECH(S): None. | | | | PREOPERATIVE DIAGNOSIS(ES): Soft tissue tumor, left knee. 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 | | | | OPERATION(S) PERFORMED: Frozen section. | | | | SPECIMEN(S) REMOVED: Interarticular and extraarticular anterior | | portion of a large intramuscular hemangioma. | | | | PROCEDURE: The patient was taken to the Operating Room, | | given general endotracheal anesthetic, and | | his left leg was | | properly prepped and draped under tourniquet control. | | | | A small incision was made over the distal aspect of the vastus medialis and | | the incision was deepened into the muscle fascia. The muscle fascia was | | opened and abnormal hemangiomatous tissue was protruding through the vastus | | medialis muscle. A sample was taken and submitted for pathology frozen | | section. The report of the frozen section came back as an intramuscular | | hemangioma. We then extended the incision both proximally and distally and | | exposed an additional part of the vastus medialis in the medial aspect of | | the knee anteriorly to the patellar tendon and posteriorly into the | | popliteal fossa. A large hemangioma was seen to be covering the medial | | aspect of the knee. | | | | The dissection was then carried around the hemangioma in the area of the | | vastus medialis, cutting and dissected laterally, and then proximally and | | posteriorly under the intramuscular septum and under the tendon of the | | adductor longus. It was obvious that the hemangioma was extending into the | | popliteal fossa. We then transected the hemangioma at the level of the | | intramuscular septum and dissected it off the anterior and medial aspect of | | the knee capsule. It was obvious that anteromedially the hemangioma was | | invading through the capsule and into the knee. The knee was entered. | | There was a large abnormal hemangioma present inside the knee on the medial | | aspect of the capsule. There were significant changes in articular | | cartilage due to the recurrent hematomas there was yellow discoloration of | | most of the synovium. The interarticular aspect of the hemangioma was | | excised, preserving the medial collateral ligament and the cruciate | | ligaments. | | | | Dissection was then carried down distally onto the proximal tibia. The | | hemangioma was infiltrating into the bone and was dissected sharply right | | out the bone, up medially to the border of the pes anserinus tendons. We | | then removed the specimen out of the knee and out of the operating field. | | It was removed in one piece. Next, we concentrated on the posterior aspect | | of the hemangioma. We dissected in the popliteal fossa and identified the | | popliteal vessels and we carefully protected them. The feeding vessels into | | the hemangioma was identified and cauterized and clipped with clips. | | | | Dissection was carried out onto the back of the knee. Again the hemangioma | | was infiltrating into the knee capsule and inside of the knee. This was | | excised and the remaining intraarticular portion of the hemangioma was | | removed, both posteriorly and from the posterior aspect of the intercondylar | | notch. Following this, the knee was carefully inspected inside. It was | | obvious there were fragments of the medial meniscus in the posteromedial | | corner slipping in and out of the joint and were infiltrated by the | | hemangioma. These was debrided. The knee was checked for range of motion | | and ot was found to be satisfactory. | | | | The knee was then irrigated and the tourniquet was let down. The wound was | | then checked for significant bleeding. All the significant bleeding points | | were cauterized. After ten minutes, the tourniquet was re-inflated and the | | wound was closed. First we reconstructed the medial aspect of the knee | | using partly the vastus medialis and the pes anserinus tendons together with | | remaining knee capsule. However, some of the bone on the femoral condyle | | and the tibia did not have fascial covering. Following this, two drains | | were inserted, one intraarticular Hemovas drain and one posteriorly a | | Connor-Guadalupe 7 mm drain. The rest of the wound was closed in layers. The | | skin was closed with reinaldo and a Carmona bandage dressing was applied. | | | | The patient was then awakened and returned to the Post Anesthesia Care Unit | | in good condition. | | | | Postoperatively, his peripheral pulses were present and strong with no | | evidence of vascular impairment. | | | | | | | | | | Myla Lagos M.D. | | Adjunct Latex Dipper, | | | | Department of Orthopaedics | | and RehabilitationBelkis | | | | A | | C: 09/18/97 renetta | | | | cc: | | | | | | | | Carlton Ospina M.D. | | Adjunct Vest Baster, | | Department of Orthopaedics and | | Rehabilitation | | | + + documented in this encounter Visit Diagnoses Not on filedocumented in this encounter"
--- OUTSIDE RECORDS SUMMARY | ~2019-08-18 | XMS | Encounter Summary ---
Demographics + + + | Address | [address] | | | [place] [address] | + + + | Home Phone [...] Author | [facility] | + + + | Organization | [facility] | + + + | Address | Unknown | + + + | Phone | Unavailable | + + + Support + + + + + | Name | Relationship | Address | Phone | + + + + + | Mohit Jackson | ECON | [address] | | | | | [place] | | | | | [address] | | + + + + + Care Team Providers + +------+ + | Care Naval Aircrewman Tactical Helicopter Name | Role | Phone | + [...] as of this encounter Progress Notes Interface, Geospatial Analyst In - 06/01/2006 3:12 AM PDTCLINIC DATE: [...] gone back to work. 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 He is on his feet for about [...] will be in contact with him at [phone]. I am looking forward to receiving the MRI for evaluation. Spencer Cornell M.D. HEVER / [place] [id number] / [id number] / [id number] / [id number] C: 05/29/2001 [facility] cc: Bassam Lozada M.D. [address] [place], [place] [id number] signed by Interface, Geospatial Analyst In at 06/01/2006 3:12 AM PDTdocumented in this encounter Plan of Treatment Not on filedocumented as of this encounter Visit Diagnoses Not on filedocumented in this encounter"
--- OUTSIDE RECORDS SUMMARY | ~2019-08-18 | XMS | Encounter Summary ---
Demographics + + + | Address | [address] | | | [place] [address] | + + + | Home Phone | | + + + | Preferred Language | Unknown | + + + | Marital Status | | + + + | Jehovah'S Witness Affiliation | NON | + + + | Race | White | + + + | Ethnic Group | Not or | + + + Author + + + | Author | [facility] | + + + | Organization | [facility] | + + + | Address | Unknown | + + + | Phone | Unavailable | + + + Support + + + + + | Name | Relationship | Address | Phone | + + + + + | Mohit Jackson | ECON | [address] | | | | | [place] | | | | | [address] | | + + + + + Care Team Providers + +------+ + | Care Customer Care Representative Name | Role | Phone | + [...] as of this encounter Progress Notes Interface, Composition Molder In - 07/23/2006 2:26 AM PSTNON-VISIT NOTE: 11[facility]18/[facility] I called Zack at work [phone] and made arrangements with Button to call him to arrange for an [...] contacts me. MD DANELLE HernandezB / HS [id number] / [id number] / [id number] / [id number] C: 11/20/1999 [facility] cc: Ye Wooten MD [id number] docume nted in this encounter Plan of Treatment Not on filedocumented as of this encounter Visit Diagnoses Not on filedocumented in this encounter"
--- OUTSIDE RECORDS SUMMARY | ~2019-08-18 | XMS | Encounter Summary ---
Demographics + + + | Address | [address] | | | [place] [address] | + + + | Home Phone | | + + + | Preferred Language | Unknown | + + + | Marital Status | | + + + | Latter-Day Affiliation | 1013 | + + + | Race | Unknown | + + + | Ethnic Group | Unknown | + + + Author + + + | Author | [facility] | | | and [place] | + + + | Organization | [facility] | | | and [place] [...] Team Providers + +------+ + | Care Dairy Science Teacher Name | Role | Phone | + +------+ + PCP | Unavailable | + +------+ + Encounter Details +--------+ + + + + | Date | Type | Department | Care Team | Description | +--------+ + + + + | 08/23/ | [facility] | [facility] | Unknown, | | | 2000 | Encounter | MED CTR XRAY [address] | MD Mike | | | | | [address] | | | | | | [place] [address] | (Fax) | | | | | [phone] | | | +--------+ + + + [...]
--- OUTSIDE RECORDS SUMMARY | ~2019-08-18 | XMS | Encounter Summary ---
Demographics + + + | Address | [address] | | | [place] [address] | + + + | Home Phone | | + + + | Preferred Language | Unknown | + + + | Marital Status | | + + + | Pentecostal Affiliation | NON | + + + | Race | White | + + + | Ethnic Group | Not or | + + + Author + + + | Author | [facility] | + + + | Organization | [facility] | + + + | Address | Unknown | + + + | Phone | Unavailable | + + + Support + + + + + | Name | Relationship | Address | Phone | + + + + + | Mohit Jackson | ECON | [address] | | | | | [place] | | | | | [address] | | + + + + + Care Team Providers + +------+ + | Care Finance Professional Name | Role | Phone | + [...] as of this encounter Progress Notes Interface, Evidence Custodian In - 07/25/2006 5:03 AM PSTCLINIC DATE: [...] Myla Lagos M.D. VAISHALI / [place] [id number] / [id number] / [id number] / [id number] Tdocumented in this encounter Plan of Treatment Not on filedocumented as of this encounter Visit Diagnoses Not on filedocumented in this encounter"
--- OUTSIDE RECORDS SUMMARY | ~2019-08-18 | XMS | Encounter Summary ---
Demographics + + + | Address | [address] | | | [place] [address] | + + + | Home Phone | | + + + | Preferred Language | Unknown | + + + | Marital Status | | + + + | Confucianism Affiliation | NON | + + + | Race | White | + + + | Ethnic Group | Not or | + + + Author + + + | Author | [facility] | + + + | Organization | [facility] | + + + [...] [place] | | | | | [address] | | + + + + + Care Team Providers + +------+ + | Care Dining Service Inspector Name | Role | Phone | + [...] Clinic | | | | | | [facility], [address] | | | | | | [place], [place] | | | | | | [address] | | | | | | [phone] | | | +--------+ + + + [...] as of this encounter Progress Notes Interface, Partition Assembly Machine Operator In - 10/11/2006 3:10 AM PST CLINIC [...] Dr. Lagos's thoughts. Carlton Ospina M.D. Adjunct Print Shop Manager, Department of Orthopaedics and Rehabilitation ADITYA/elizabeth P cc: Bassam Cabrales MD documented in this encounter Plan of Treatment Not on filedocumented as of this encounter Visit Diagnoses Not on filedocumented in this encounter"
--- OUTSIDE RECORDS SUMMARY | ~2019-08-18 | XMS | Encounter Summary ---
Demographics + + + | Address | [address] | | | [place] [address] | + + + | Home Phone [...] [place] | | | | | [address] | | + + + + + Care Team Providers + +------+ + | Care Community Health Navigator Name | Role | Phone | + [...] [id number] | | | | | | [place], [place] | | | | | | [address] | | | | | | [phone] | | | +--------+ + + + [...] | + + + + + | [facility] | [address] | [place] [address] | | | PATHOLOGY | [address] [...] | + + + + + | [facility] | [address] | [place] [address] | | | PATHOLOGY | [address] [...] | + + + + + | [facility] | [address] | [place] [address] | | | PATHOLOGY | [address] [...] | + + + + + | [facility] | [address] | [place] [address] | | | PATHOLOGY | [address] [...] | + + + + + | [facility] | [address] | [place] [address] | | | PATHOLOGY | [address] [...] | + + + + + | [facility] | [address] | [place] [address] | | | PATHOLOGY | [address] [...] | + + + + + | [facility] | [address] | [place] [address] | | | PATHOLOGY | [address] [...] | + + + + + | [facility] | [address] | [place] [address] | | | PATHOLOGY | [address] [...] | + + + + + | [facility] | [address] | [place] [address] | | | PATHOLOGY | [address] | | | + + + + + documented in this encounter Visit Diagnoses Not on filedocumented in this encounter"
--- OUTSIDE RECORDS SUMMARY | ~2019-08-18 | XMS | Encounter Summary ---
Demographics + + + | Address | [address] | | | [place] [address] | + + + | Home Phone | | + + + | Preferred Language | Unknown | + + + | Marital Status | | + + + | Confucianism Affiliation | NON | + + + | Race | White | + + + | Ethnic Group | Not or | + + + Author + + + | Author | [facility] | + + + | Organization | [facility] | + + + | Address | Unknown | + + + | Phone | Unavailable | + + + Support + + + + + | Name | Relationship | Address | Phone | + + + + + | Mohit Jackson | ECON | [address] | | | | | [place] | | | | | [address] | | + + + + + Care Team Providers + +------+ + | Care Childbirth Educator Name | Role | Phone | + [...] Clinic | | | | | | [facility], [address] | | | | | | [place], [place] | | | | | | [address] | | | | | | [phone] | | | +--------+ + + + [...] as of this encounter Progress Notes Interface, Cardiology Tech In - 10/17/2006 5:07 AM PST CLINIC [...] his leg much. 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 PHYSICAL EXAMINATION: He lacks about 5 degrees [...] Orthopedic Surgery for Carlton Ospina M.D. Adjunct Wind Turbine Engineer, Orthopaedics and Rehabilitation RENETTA/elizabeth P cc: Bassam Cabrales MD documented in this encounter Plan of Treatment Not on filedocumented as of this encounter Visit Diagnoses Not on filedocumented in this encounter"
--- OUTSIDE RECORDS SUMMARY | ~2019-08-18 | XMS | Encounter Summary ---
Demographics + + + | Address | [address] | | | [place] [address] | + + + | Home Phone [...] [place] | | | | | [address] | | + + + + + Care Team Providers + +------+ + | Care Skiver [place] Name | Role | Phone | + +------+ + PCP | Unavailable | + +------+ + Encounter Details +--------+ + + + + | Date | Type | Department | Care Team | Description | +--------+ + + + + | 08/08/ | Procedure - | [facility] | Record, Operation | Operative Report | | 1996 | | [facility] [facility] | | | | | Transcribed | Dex Orosco | | | | | | Mailcode: [place] | | | | | | [facility] | | | | | | Healing, [address] | | | | | | [facility] [place] | | | | | | [address] | | | | | | [phone] | | | +--------+ + + + [...] | + + | 08/08/1997 12:00 AM [facility] | | [facility] | | [address], [place] [address] | | [facility] | | | | OPERATION RECORD | | | | Med Rec No.: [id number] Date: 08/08/97 | | | | Name: Zack Jackson | | | | | | ATTENDING SURGEON: Myla Lagos M.D. | | Adjunct Derrick Barge Operator, | | Department of Orthopaedics | | and Rehabilitation | | | | PRINCIPAL GIFTS OFFICER(S): None. | | | | PREOPERATIVE DIAGNOSIS(ES): [...] | Myla Lagos M.D. | | Adjunct Derrick Barge Operator, | | | | Department of Orthopaedics | | and RehabilitationBelkis | | | | A | | C: 09/18/97 renetta | | | | cc: | | | | | | | | Carlton Ospina M.D. | | Adjunct Rose Grading Supervisor, | | Department of Orthopaedics and | | Rehabilitation | | | + + documented in this encounter Visit Diagnoses Not on filedocumented in this encounter"
--- OUTSIDE RECORDS SUMMARY | ~2019-08-18 | XMS | Encounter Summary ---
Demographics + + + | Address | [address] | | | [place] [address] | + + + | Home Phone | | + + + | Preferred Language | Unknown | + + + | Marital Status | | + + + | Orthodox Affiliation | NON | + + [...] [place] | | | | | [address] | | + + + + + Care Team Providers + +------+ + | Care Skin Care Instructor Name | Role | Phone | [...] Clinic | | | | | | [facility], [address] | | | | | | [place], [place] | | | | | | [address] | | | | | | [phone] | | | +--------+ + + + [...] as of this encounter Progress Notes Interface, Director Of Advertising Sales In - 10/11/2006 3:10 AM [facility] DATE: 06/12/97 HISTORY OF PRESENT ILLNESS: [...] take street drugs. He works as a physical security manager. He is with one child. CURRENT MEDICATIONS: [...] rehabilitate him fully. Myla Lagos M.D. Adjunct Automotive Designer, Department of Orthopaedics and Rehabilitation Franky A cc: Jian Garcia M.D. documented in this encounter Plan of Treatment Not on filedocumented as of this encounter Visit Diagnoses Not on filedocumented in this encounter"
--- OUTSIDE RECORDS SUMMARY | ~2019-08-18 | XMS | Encounter Summary ---
Demographics + + + | Address | [address] | | | [place] [address] | + + + | Home Phone [...] + + + | Author | [facility] | + + + | Organization | [facility] | + + + | Address | Unknown | + + + | Phone | Unavailable | + + + Support + + + + + | Name | Relationship | Address | Phone | + + + + + | Mohit Jackson | ECON | [address] | | | | | [place] | | | | | [address] | | + + + + + Care Team Providers + +------+ + | Care Records Assistant Name | Role | Phone | + [...] Clinic | | | | | | [facility], [address] | | | | | | [place], [place] | | | | | | [address] | | | | | | [phone] | | | +--------+ + + + [...] as of this encounter Progress Notes Interface, Flight Follower In - 09/13/2006 1:08 AM PST CLINIC [...] in the meanwhile. Myla Lagos M.D. Adjunct Slotter Operator, Department of Orthopaedics and Rehabilitation Franky A cc: PCP documented in this encounter Plan of Treatment Not on filedocumented as of this encounter Visit Diagnoses Not on filedocumented in this encounter"
--- OUTSIDE RECORDS SUMMARY | ~2019-08-18 | XMS | Encounter Summary ---
Demographics + + + | Address | [address] | | | [place] [address] | + + + | Home Phone | | + + + | Preferred Language | Unknown | + + + | Marital Status | | + + + | Roman Catholic Affiliation | NON | + + + | Race | White | + + + | Ethnic Group | Not or | + + + Author + + + | Author | [facility] | + + + | Organization | [facility] | + + + | Address | Unknown | + + + | Phone | Unavailable | + + + Support + + + + + | Name | Relationship | Address | Phone | + + + + + | Mohit Jackson | ECON | [address] | | | | | [place] | | | | | [address] | | + + + + + Care Team Providers + +------+ + | Care Radiation Therapy Technologist Name | Role | Phone | + [...] | | | | | | [facility], [address] | | | | | | [place], [place] | | | | | | [address] | | | | | | [phone] | | | +--------+ + + + [...] as of this encounter Progress Notes Interface, Scan Coordinator In - 09/26/2006 3:05 AM PST CLINIC [...] a few months. Myla Lagos M.D. Adjunct Product Support Rep, Department of Orthopaedics and Rehabilitation MICHAEL/elizabeth A cc: Bassam Lozada MD [address] [place] [address] documented in this encounter Plan of Treatment Not on filedocumented as of this encounter Visit Diagnoses Not on filedocumented in this encounter"
[~2019-08-18 19:23] MED LIST: FEXOFENADINE H180 MG PO; LISINOPRIL10 MG PO; OMEPRAZOLE20 MG PO
[2019-08-18] MEDS ORDERED: ELIQUIS5 MG PO (22:01)
== END 2019-08-18 22:13 | disposition home or self-care (01) ==
LOC: ED 19:23
DX: I82.432 Acute embolism and thrombosis of left popliteal vein (principal); I10 Essential (primary) hypertension; Z79.899 Other long term (current) drug therapy
CPT/HCPCS: 93971; 99283-25

== ENCOUNTER 2023-09-22 07:25 | Day surgery (SDC) | payer OTHER ==
[~2023-09-22] VITALS: Ht 177.8 cm; Wt 97.7 kg
[~2023-09-22 07:25] MED LIST changes: +ELIQUIS5 MG PO; +GABAPENTIN100 MG PO
[2023-09-22 07:42] VITALS: BP 140/76
[2023-09-22] MEDS ORDERED: CLARITIN10 MG PO (07:47)
--- NOTE | 2023-09-22 09:47 | NUR ---
09/22/23 0947 Leonela Treadwell 0940 PATIENT INTO PACU BAY 6. REPORT RECIEVED FROM DEBBIE CONWAY. PATIENT DROWSY. BREATHING EQUAL AND UNLABORED. OXYGEN SATURATIONS ABOVE 90% ON ROOM AIR. RR 12-20. NO DRAINAGE AT SURGICAL SITE. IVF INFUSING. PATIENT DENIES PAIN OR BEING NAUSEATED.
[2023-09-22 10:10] VITALS: BP 119/86
--- NOTE | 2023-09-26 10:00 | OR ---
[facility] [address] [place], [place] [address] Signed DATE OF OPERATION: 09/22/2023 SURGEON: Edd Kendrick MD PREOPERATIVE DIAGNOSES: 1. Long-standing gastroesophageal reflux, symptoms well controlled with PPI. 2. Colon screening. POSTOPERATIVE DIAGNOSES: 1. Poor flap valve consistent with hiatal hernia. No sign of active esophagitis. 2. Diverticulosis of the sigmoid with hypertrophy and mucosa of ileocecal valve. PROCEDURE: Esophagogastroduodenoscopy with biopsy as well as colonoscopy with biopsy of ileocecal valve. ANESTHESIA: Intravenous sedation; fentanyl 150 mcg and Versed 9 mg total. INDICATION: This 53-year-old white man is a patient of [facility]. He was referred for consideration for upper endoscopy and colonoscopy. He has never had colon evaluation in the past and in general has no symptoms of bleeding, diarrhea, or constipation and no current complaints of rectal bleeding. He additionally has long-standing gastroesophageal reflux symptoms for which he was taking Prilosec for a number of years. He has significant symptoms even if off medication for a day. He does have a complex past medical history including sleep apnea, as well as history of ITP (idiopathic thrombocytopenia purpura), ultimately requiring splenectomy. He is admitted at this time to undergo upper endoscopy and colonoscopy. He understands the risk of bleeding, infection, and perforation. FINDINGS: Upper endoscopy showed a poor flap valve but well healed distal esophagus. CLOtest was negative 30 minutes post procedure. On colonoscopy, the prep was quite good. He had diverticulosis of the sigmoid colon and hypertrophy of the ileocecal valve for which biopsy was obtained. There was no sign of specific polyps, colitis, or cancer. DESCRIPTION OF PROCEDURE: Electronically Signed By: EDD KENDRICK MD 09/26/23 1000 PATIENT NAME: SIMON GAITAN II OPERATIVE REPORT DATE OF : 68 REPORT #: [id number] PHYSICIAN: EDD KENDRICK MD PCP: KEY TUBBS PAC REPORT IS CONFIDENTIAL AND NOT TO BE RELEASED WITHOUT AUTHORIZATION [facility] [address] [place], [place] [address] Signed The patient was brought to the endoscopy suite and placed in the lateral decubitus position, given intravenous sedation to the point of slurred speech and nystagmus with full cardiopulmonary monitoring after administration of lidocaine hypopharyngeal anesthesia. A bite block was placed. An Olympus video upper endoscope was passed in the hypopharynx. The vocal cords appeared normal. Scope was advanced to the esophagus without problem. Esophagus appeared normal. Scope was advanced to the stomach which was insufflated with air. Rugal folds were normal as was antral motility. Pylorus was normal. Scope was passed through into the duodenum, which was normal. Biopsies were obtained there to assess for celiac disease. The scope was withdrawn and biopsies were taken of the antrum for both ROSEMARY and pathologic testing. Retroflexed view was undertaken confirming a poor flap valve consistent with hiatal hernia. The scope was withdrawn to the distal esophagus. Mucosa was biopsied. There was no evidence of active inflammation, esophagitis or stricture and no Rodriguez's epithelium. Further withdrawal of the scope allowed for midesophageal biopsies, which were normal. The scope was withdrawn and removed and plans made for colonoscopy. Additional sedation was given and plans were made for colonoscopy. Digital rectal examination was normal. An Olympus video colonoscope was passed in the rectum and manipulated throughout the colon noting diverticular change of the sigmoid. The scope was advanced beyond this ultimately to the cecum which was well visualized. There appeared to be hypertrophy of the ileocecal valve mucosa. Concern was maintained for possible adenomatous change, though this is not certain. Intubation of the ileum was not forthcoming. Therefore, biopsies were taken of the mucosa that may represent only hyperplasia but possibly adenomatous change. The scope was then withdrawn and examination throughout showed no sign of other abnormality other than diverticular change of the sigmoid and left colon. Retroflexed view was normal as well. The scope was removed and the patient was taken to the recovery room in good condition. CONCLUDING DIAGNOSES: 1. Clinical gastroesophageal reflux, well managed by PPI medication with associated hiatal hernia. 2. Diverticular changes of sigmoid and left colon. 3. Hypertrophic mucosa of ileocecal valve, uncertain for adenomatous change. PLAN: We would recommend continued use of his PPI medication as before. Would maintain a high-fiber diet and repeat colonoscopy in 10 years, so long as biopsies of terminal ileum show no sign of adenomatous change. He will return to the ongoing care of [facility]. Electronically Signed By: EDD KENDRICK MD 09/26/23 1000 PATIENT NAME: SIMON GAITAN II OPERATIVE REPORT DATE OF : 68 REPORT #: [id number] PHYSICIAN: EDD KENDRICK MD PCP: KEY TUBBS PAC REPORT IS CONFIDENTIAL AND NOT TO BE RELEASED WITHOUT AUTHORIZATION [address] [address] Signed Edd Kendrick MD JM/MODL /[id number] cc: Key Tubbs PA-C Copies: KEY TUBBS ~ Electronically Signed By: EDD KENDRICK MD 09/26/23 1000 PATIENT NAME: SIMON GAITAN RACHAEL OPERATIVE REPORT DATE OF : 68 REPORT #: [id number] PHYSICIAN: EDD KENDRICK MD PCP: KEY TUBBS REPORT IS CONFIDENTIAL AND NOT TO BE RELEASED WITHOUT AUTHORIZATION
--- NOTE | 2023-09-26 11:40 | PATH ---
[facility] [address] [place], [place] [address] Signed SPECIMEN(S): A DUODENAL BIOPSY SPECIMEN(S): B ANTRUM BIOPSY SPECIMEN(S): C LOWER ESOPHAGEAL BIOPSY SPECIMEN(S): D MIDDLE ESOPHAGEAL BIOPSY SPECIMEN(S): E ILEOCECAL VALVE BIOPSY SPECIMEN SOURCE: A. DUODENAL BIOPSY B. ANTRUM BIOPSY C. LOWER ESOPHAGEAL BIOPSY D. MIDDLE ESOPHAGEAL BIOPSY E. ILEOCECAL VALVE BIOPSY CLINICAL HISTORY: Pre: Gastritis and GERD, initial screening colonoscopy. Post: Hiatal hernia. Diverticulosis and hypertrphy ileocecal valve FINAL PATHOLOGIC DIAGNOSIS: A. Duodenum, biopsy: - Duodenal mucosa with no significant pathologic changes B. Stomach, antrum, biopsy: - Gastric antral mucosa with no significant pathologic changes - Negative for Helicobacter pylori with HE stains C. Esophagus, lower, biopsy: - Esophageal squamous mucosa with no significant pathologic changes D. Esophagus, middle, biopsy: - Esophageal squamous mucosa with no significant pathologic changes E. Ileocecal valve, biopsy: - Enterocolonic mucosa with no significant pathologic changes BRP MICROSCOPIC EXAMINATION: Histologic sections of all submitted blocks are examined by light microscopy. These findings, together with the gross examination, support the pathologic diagnosis. GROSS DESCRIPTION: A. The specimen, labeled and designated "Vladimir Gaitan " and designated on the requisition "duodenum biopsy," is received in formalin and consists of two gomes soft tissue fragments measuring 0.3 to 0.4 cm, both specimens are submitted entirely in (A1). PATIENT NAME: SIMON GAITAN II PATHOLOGY DATE OF : 68 REPORT #: [id number] PHYSICIAN: KENNETH ROBINS PCP: POLI SHEFFIELD PAC REPORT IS CONFIDENTIAL AND NOT TO BE RELEASED WITHOUT AUTHORIZATION [facility] [address] [place], [place] [address] Signed B. The specimen, labeled and designated "GaitanVladimir, " and designated on the requisition "stomach, antrum/pylorus biopsy," is received in formalin and consists of one gomes soft tissue fragment measuring 0.4 cm, the specimen is submitted entirely in (B1). C. The specimen, labeled and designated "GaitanVladimir, " and designated on the requisition "lower esophagus biopsy," is received in formalin and consists of one gomes-white soft tissue fragment measuring 0.7 cm, the specimen is submitted entirely in (C1). D. The specimen, labeled and designated "GaitanVladimir, " and designated on the requisition "middle esophagus biopsy," is received in formalin and consists of two gomes-white soft tissue fragments measuring 0.4 to 0.7 cm, both specimens are submitted entirely in (D1). E. The specimen, labeled and designated "GaitanVladimir, " and designated on the requisition "ileocecal valve biopsy multiple fragments of gomes-brown soft tissue measuring 0.3 to 0.4 cm, all specimens are submitted entirely," is received in formalin and consists of no summary MMA (under the direct supervision of a pathologist) The Gross Description was prepared using a voice recognition system. The report was reviewed for accuracy; however, sound-alike word errors, addition and/or deletions may occur. If there is any question about this report, please contact Client Services. ADDITIONAL NOTES: Immunohistochemical and/or in situ hybridization studies if performed in this case included appropriate positive controls that reacted as expected. This test was developed and its performance characteristics determined by [facility]. It has not been cleared or approved by the U.S. Food and Drug Administration. The FDA has determined that such clearance or approval is not necessary. This test is used for clinical purposes. It should not be regarded as investigational or for research. [facility] is certified under the Clinical Laboratory Improvement Amendments of 1988 (CLIA) as qualified to perform high complexity clinical laboratory testing. PERFORMING LABORATORY: Technical component was performed by [facility], [address] [place] [id number] (CLIA# [id number]). Professional interpretation was performed by [facility], [address] [place] [address] (CLIA#:[id number]). PATIENT NAME: SIMON GAITAN II PATHOLOGY DATE OF : 68 REPORT #: [id number] PHYSICIAN: KENNETH ROBINS PCP: POLI SHEFFIELD PAC REPORT IS CONFIDENTIAL AND NOT TO BE RELEASED WITHOUT AUTHORIZATION [facility] [address] [facility] [place] [address] Signed Diagnostician: Jose Roberto Bedolla MD Pathologist Electronically Signed 09/26/2023 Copies: ~ PATIENT NAME: SIMON GAITAN II PATHOLOGY DATE OF : 68 REPORT #: [id number] PHYSICIAN: [facility] PATHOLOGY PCP: POLI SHEFFIELD PAC REPORT IS CONFIDENTIAL AND NOT TO BE RELEASED WITHOUT AUTHORIZATION
== END 2023-09-22 10:15 | disposition home or self-care (01) ==
LOC: DS 07:25 → OPS 07:25 → DS 10:00 → OPS 10:00
PROVIDERS: ATTEND Surgery
PROC: 0DB28ZX Excision of Middle Esophagus, Via Natural or Artificial Opening Endoscopic, Diagnostic (ICD-10-PCS; 2023-09-22)
PROC: 0DB38ZX Excision of Lower Esophagus, Via Natural or Artificial Opening Endoscopic, Diagnostic (ICD-10-PCS; 2023-09-22)
PROC: 0DBB8ZX Excision of Ileum, Via Natural or Artificial Opening Endoscopic, Diagnostic (ICD-10-PCS; 2023-09-22)
PROC: 0DB98ZX Excision of Duodenum, Via Natural or Artificial Opening Endoscopic, Diagnostic (ICD-10-PCS; principal; 2023-09-22 08:50)
PROC: 0DB78ZX Excision of Stomach, Pylorus, Via Natural or Artificial Opening Endoscopic, Diagnostic (ICD-10-PCS; 2023-09-22 08:50)
DX: Z12.11 Encounter for screening for malignant neoplasm of colon (principal); K29.70 Gastritis, unspecified, without bleeding; K21.9 Gastro-esophageal reflux disease without esophagitis; K57.30 Diverticulosis of large intestine without perforation or abscess without bleeding; K44.9 Diaphragmatic hernia without obstruction or gangrene; Z90.81 Acquired absence of spleen; Z87.442 Personal history of urinary calculi; Z76.89 Persons encountering health services in other specified circumstances
CPT/HCPCS: 99153; G0500; J0690; J2250; J3010; J7121

== ENCOUNTER 2024-12-19 14:26 | Emergency (ER) | payer OTHER ==
[~2024-12-19] VITALS: Ht 177.8 cm; Wt 101.5 kg
[~2024-12-19 14:26] MED LIST changes: +CLARITIN10 MG PO
[2024-12-19] MEDS ORDERED: DICLOFENAC POTA50 MG PO (15:47)
[2024-12-19 17:38] VITALS: BP 154/113
== END 2024-12-19 17:20 | disposition home or self-care (01) ==
LOC: ED 14:26
DX: S80.01XA Contusion of right knee, initial encounter (principal); W18.30XA Fall on same level, unspecified, initial encounter; I10 Essential (primary) hypertension
CPT/HCPCS: 73560; 99283

== ENCOUNTER 2025-06-03 16:04 | Emergency (ER) | payer OTHER ==
[~2025-06-03] VITALS: Ht 177.8 cm; Wt 98.0 kg
--- OUTSIDE RECORDS SUMMARY | ~2025-06-03 | XMS | Continuity of Care Document ---
Demographics + + + | Address | [address] | | | [place] [address] | + + + | Preferred Language | Unknown | + + + | Marital Status | | + + + | Taoist Affiliation | Unknown | + + + | Race | White | + + + | Ethnic Group | Not or | + + + Author + + + | Author | [facility] | + + + | Organization | [facility] | + + + | Address | [address] | | | [place] [address] | + + + | Phone | | + + + Care Team Providers + + + + | Care Cyber Security Instructor Name | Role | Phone | + + + + Unavailable | Unavailable | + + + + Allergies No information. Encounters No information. Functional Status No information. Immunizations No information. Medications + + + + | date | description | facility | + + + + | (no date) | OMEPRAZOLE | [facility] | | | | [facility] | + + + + | (no date) | LORATADINE | [facility] | | | | [facility] | + + + + | (no date) | GABAPENTIN | [facility] | | | | [facility] | + + + + | (no date) | LISINOPRIL | [facility] | | | | [facility] | + + + + | (no date) | DICLOFENAC POTASSIUM | [facility] | | | | [facility] | + + + + | (no date) | FEXOFENADINE HCL | [facility] | | | | [facility] | + + + + Problems No information. Procedures No information. Results/Labs No information. Social History +--------+ + + | date | description | facility | +--------+ + + Vital Signs No information."
[~2025-06-03 16:04] MED LIST changes: +DICLOFENAC POTA50 MG PO
[2025-06-03 17:55] LABS: BLOOD/HGB, URINE NEGATIVE (Negative); KETONE, URINE NEGATIVE (Negative); LEUK ESTERASE, URINE NEGATIVE (negative); NITRITE, URINE NEGATIVE (negative)
[2025-06-03] MEDS ORDERED: KETOROLAC TROMETHAMINE 15 MG/ML VIAL IV ONE (18:00)
[2025-06-03 18:11] LABS: BASOPHILS 0.3 % (0.2-1.2); EOSINOPHILS 0.2 % (0.8-7.0); LYMPHOCYTES 16.5 % (21.8-53.1); MCH 30.2 PG (25.7-32.2); MCHC 33.6 g/dL (32.3-36.5); MCV 90.1 fL (79.0-92.2); MONOCYTES 10.7 % (5.3-12.2); NEUTROPHILS 71.8 % (34.0-67.9); RBC 5.06 M/uL (4.63-6.08)
[2025-06-03] MEDS ORDERED: SODIUM CHLORIDE 0.9% 1,000 ML IV PRN (18:15)
[2025-06-03 18:27] LABS: ALT (SGPT) 56.0 U/L (14-59); AST (SGOT) 29.0 U/L (15-37); GLOMERULAR FILTRATION RATE,EST 87.0 mL/min (>60); PROTEIN, TOTAL 7.6 g/dL (6.4-8.2); UREA NITROGEN 11.0 mg/dL (7-18)
[2025-06-03] MEDS ORDERED: HYDROCODON-ACE1 EA10 PO (19:51)
[2025-06-03] MEDS ORDERED: methylPREDNISolone 4 MG HOME.PACK PO ONE (20:00)
[2025-06-03] MEDS ORDERED: HYDROCODONE BIT/ACETAMINOPHEN 5/325 MG 1 TAB HOME.PACK PO ONE (20:00)
[2025-06-03 20:25] VITALS: BP 150/89
== END 2025-06-03 20:13 | disposition home or self-care (01) ==
LOC: ED 16:04
PROVIDERS: Emergency Medicine
DX: R10.A1 Flank pain, right side (principal); I10 Essential (primary) hypertension; Z79.899 Other long term (current) drug therapy
CPT/HCPCS: 36415; 74177; 80053; 81003; 85025; 96374; 96375; 99284-25; A9270; J1885; J2405; J7030; Q9967